=== PATIENT | female | born 1995 | race Caucasian/White ===

== ENCOUNTER 2018-02-11 00:09 | Day surgery (SDC) | payer OTHER ==
[2018-02-11 00:58] VITALS: BMI 39.4
[2018-02-11] MEDS ORDERED: Promethazine HCl 25 MG/ML VIAL IM SCH (02:00)
[2018-02-11] MEDS ORDERED: Morphine 10 MG/ML VIAL IM SCH (02:00)
[2018-02-11 03:07] LABS: Creatinine, Urine 156.15 mg/dL (47-110)
--- NOTE | 2018-02-11 03:33 | PRG ---
OB ER ENCOUNTER DATE OF SERVICE: 02/11/2018 PRIMARY OB: Lakeshia Avalos M.D. CHIEF COMPLAINT: Abdominal pains. HISTORY OF PRESENT ILLNESS: The patient is a 22-year-old G1, P0 female with an intrauterine at 40 weeks and 3 days who is presenting to Labor and Delivery with the uterine contractions that began about 8:00 this morning. She reports she is feeling better every 2-3 minutes. She denies any vaginal bleeding or leakage of fluid. She was last checked about almost a week ago and was noted to be 1 cm dilated. She has been checked again today by nursing staff and was 1 cm dilated. The patient denies any recent illness, fever, fall , headache, chest pain, shortness of breath. She has had some nausea, no vomiting, has had some diarrhea, no constipation. Denies any rashes. Denies any musculoskeletal pains. Denies vaginal bleeding, leakage of fluid, or urinary problems. PAST MEDICAL HISTORY: Negative. PAST SURGICAL HISTORY: Negative. OBSTETRIC HISTORY: This is her first . ALLERGIES: No known drug allergies. SOCIAL HISTORY: Denies drug, alcohol or tobacco use. MEDICATIONS: vitamins. OB LABS: Blood type is O negative, antibody screen is negative. She is rubella immune. HIV is nonreactive. RPR is nonreactive. One hour glucola was 145. Three-hour test is unavailable at time of dictation. HIV nonreactive, hepatitis B surface antigen nonreactive. REVIEW OF SYSTEMS: Per HPI. PHYSICAL EXAMINATION: VITAL SIGNS: Blood pressure 134/83, heart rate of 83, respiratory rate of 18, satting 98% on room air, and temperature 98.6. Most recent blood pressure 159/ 73, heart rate of 81, respiratory rate of 20. GENERAL: She appears to have some distress with contractions. She is alert and oriented, cooperative and pleasant to interact with. HEENT: Head is normocephalic, atraumatic. LUNGS: Clear to auscultation bilaterally. HEART: Regular rate and rhythm. ABDOMEN: Gravid and soft in between contractions. EXTREMITIES: Nontender, nonedematous. CERVICAL EXAM: 1, 60, and -2 station. heart tracing performed for abdominal pain in . Baseline is noted to be in the 130s with moderate long-term variability, positive accelerations, and no deceleration. Tocometer is showing some irregular contractions about every 2-4 minutes. ASSESSMENT AND PLAN: The patient is a 22-year-old with an intrauterine at 40 weeks and 3 days who is likely in latent labor at this time. She is showing some mild range blood pressure, possibly due to pain related. We will monitor her longer than had originally planned and given her 6 mg of morphine IM and 25 mg of Phenergan IM. Once her pain is under control, we will continue to monitor blood pressures and see if they spike into the mild range again, if so patient will remain until morning for likely induction of labor. Addendum: pt with pain control had normal blood pressures. Was called by nursing staff several hours after initial eval. sve unchanged, pt sleeping between ctx. blood pressures wnl. pt discharged home. She has an appt with Dr Avalos at 10am this morning [facility]
== END 2018-02-11 05:05 | disposition home or self-care (01) ==
LOC: L&D/OP 00:09
PROVIDERS: ATTEND Obstetrics & Gynecology
DX: O47.1 False labor at or after 37 completed weeks of gestation (principal); Z3A.40 40 weeks gestation of pregnancy; Z79.899 Other long term (current) drug therapy; Z91.040 Latex allergy status
CPT/HCPCS: 82570; 84156; 96372; 99284; J2270; J2550

== ENCOUNTER 2018-02-11 19:19 | Inpatient (IN) | payer OTHER ==
[~2018-02-11 19:19] MED LIST: Lidocaine 2% MPF 10 ML AMP (For Epidural Use) ONE
[2018-02-11] MEDS ORDERED: Lactated Ringer's 1,000 ML IV SCH (20:30)
[2018-02-11] MEDS ORDERED: HYDROcodone/Acetaminophen 5/325 mg Tablet PO PRN ×2 (20:47)
[2018-02-11] MEDS ORDERED: NS / Oxytocin 40 units/1000ml 1,000 ML IV PRN (20:47)
[2018-02-11] MEDS ORDERED: Ibuprofen 800 MG TAB PO PRN (20:47)
[2018-02-11] MEDS ORDERED: Lidocaine 1% (PF) 30 ML VIAL SC PRN (20:47)
[2018-02-11] MEDS ORDERED: Promethazine HCl 25 MG/ML VIAL IM PRN (20:47)
--- NOTE | 2018-02-11 20:52 | PDOC.LDHP ---
Labor and Delivery H&P HPI: PLEASE SEE HANDWRITTEN PROGRESS NOTES FOR H&P Location: L&D Patient of Dr allen CC: contrcations at 40 weeks 3 days Patient here for contractions, was 1 cm yesterday and then 3cm today with alejandro in office. Now, still with contractions but 3cm. Good FM. HX of DX of Factor V Leiden Heterozygous. No personal HX or family HX DVT/PE. Unsure how the thrombophilia work up found that DX per [employer] (No clotting episodes). She was on 81mg ASA this , but stopped 1 weeks ago. No other issues. Review of Systems: complete ROS performed and negative as per HPI Current gestational age (weeks): 40 (3) Due date: 02/08/18 Grav: 1 Para: 0 Previous surgical history: none Allergies/Adverse Reactions: Allergies Allergy/AdvReac Type Severity Reaction Status Date / Time latex Allergy Verified 02/11/18 00:50 Social history: none - Physical Exam Vital signs reviewed and normal: yes General: NAD Heart: RRR Lungs: CTAB Abdomen: gravid (EFW 7#) FHT: category 1 [place] contractions every: every 5 minutes or so - Vaginal Exam cm dilated: 3 (BOWI) Effacement: 90% Station: -2 - Assessment L&D Assessment: term patient in labor (Latent phase, Factor V Heterozygous) - Plan Plan: admit to L&D, labor augmentation if indicated (WE will begin pitocin for augmenation if needed at 0400 after interval to see if spontaneous progress occurs.), informed consent obtained, anesthesia consult for pain management, other (ACOG states low risk thrombophilia does not need anticogulation without personal or family HX. We will apply SCDs to be conservative. I have reviewed all of this information with the patient and her partner at bedside. Dr Allen aware.)
[2018-02-11 20:57] LABS: Hemoglobin 12.1 g/dL (12.0-16.0); Mean Corpuscular HGB CONC 33.1 g/dL (32.0-36.0); Mean Corpuscular Hemoglobin 29.6 pg (27.0-31.0); Mean Corpuscular Volume 89.4 fl (81.0-99.0); Mean Platelet Volume 7.8 fL (7.4-10.4); Platelet Count 231 thou/uL (130-400); RBC Distribution Width 12.1 % (11.5-14.5); Red Blood Cell (RBC) Count 4.09 mill/uL (4.20-5.40); White Blood Cell (WBC) Count 16.6 thou/uL (4.8-10.8)
[2018-02-11 21:15] VITALS: BMI 39.4
[2018-02-11 21:35] LABS: Syphilis Antibody Nonreactive (Nonreactive); Syphilis Antibody Index 0.05 S/CO (<1.00 Non-Reactive)
[2018-02-12 01:09] LABS: HBSAg Index 0.17 S/CO (0-0.99); HIV (1/2) Antibody/Antigen Non-Reactive (NonReactive); HIV 1/2 INDEX 0.15 S/CO (<1.00); Hep B Surf Ag Non-Reactive S/CO (NonReactive)
[2018-02-12] MEDS: Lactated Ringer's 1,000 ML IV SCH ×2 (03:55→04:46)
[2018-02-12] MEDS ORDERED: NS w/ Oxytocin 10 units 500 ML IV SCH (04:00)
[2018-02-12] MEDS ORDERED: DISCONTINUE ALL PREVIOUS NARCOTICS FS SCH (04:30)
[2018-02-12] MEDS: Bupivacaine 0.5% 20 ML, fentaNYL Citrate/PF 400 MCG in Sodium Chloride 0.9% 72 ML EPIDURAL SCH ×2 (04:50→10:24)
[2018-02-12] MEDS ORDERED: Lactated Ringer's 500 ML IV PRN (06:22)
[2018-02-12] MEDS ORDERED: ePHEDrine/0.9% NaCl/PF SYRINGE 50 mg/10 ml SLOW IVP PRN (06:22)
[2018-02-12] MEDS ORDERED: Acetaminophen 325 MG TAB PO PRN (06:22)
[2018-02-12] MEDS ORDERED: Naloxone HCl 0.4 mg/ml Vial IVP PRN ×2 (06:22)
[2018-02-12] MEDS ORDERED: Ondansetron HCl/PF 4 MG/2 ML Vial IVP PRN (06:22)
[2018-02-12] MEDS ORDERED: Promethazine HCl 25 MG/ML VIAL IM PRN (06:22)
[2018-02-12] MEDS ORDERED: Eucerin (Mineral Oil/Petrolatum,White) 30 gm Jar TOP PRN (06:22)
[2018-02-12] MEDS ORDERED: diphenhydrAMINE 50 MG/ML VIAL IVP PRN (06:22)
[2018-02-12] MEDS ORDERED: Communication Order-Pharmacy FS SCH (06:30)
[2018-02-12] MEDS ORDERED: Fentanyl 4mcg/Marcaine 0.1% Cassette 100 ML EPIDURAL SCH (06:30)
[2018-02-12] MEDS ORDERED: Lanolin Ointment 7 GM TUBE TOP PRN (11:25)
[2018-02-12] MEDS ORDERED: Benzocaine/Menthol 20-0.5% 60 ML CAN TOP PRN (11:25)
[2018-02-12] MEDS ORDERED: Milk Of Magnesia 30 ML UDCUP PO PRN (11:25)
[2018-02-12] MEDS ORDERED: diphenhydrAMINE 25 MG CAP PO PRN (11:25)
[2018-02-12] MEDS ORDERED: Preparation H Ointment 28 GM TUBE PR PRN (11:25)
[2018-02-12] MEDS ORDERED: traMADol HCl 50 MG TAB PO PRN (11:25)
[2018-02-12] MEDS ORDERED: Bisacodyl 10 MG SUPP PR PRN (11:25)
--- NOTE | 2018-02-12 11:27 | PDOC.OPDEL ---
OB Operative/Delivery Note Delivery Dr/Surgeon: Bailey Pre-Delivery Diagnosis: active labor Procedure/Post Delivery Dx: spontaneous vaginal delivery Weeks gestation: 40 Anesthesia: epidural - Findings A Sex: male - 1 min: 8 - 5 min: 9 - Additional Findings/Plan Placenta delivered: spontaneous Repaired Obstetrical Laceration: 2nd degree Estimated blood loss: 200ml Post delivery plan: routine recovery
[2018-02-12] MEDS ORDERED: NS / Oxytocin 40 units/1000ml 1,000 ML IV SCH (11:30)
[2018-02-12] MEDS: Ibuprofen 800 MG TAB PO SCH ×2 (14:37→21:17)
[2018-02-12] MEDS: Ferrous Sulfate 325 MG TAB PO SCH (17:23)
[2018-02-12] MEDS: Docusate Calcium (SURFAK) 240 MG CAP PO SCH (21:18)
[2018-02-13] MEDS: traMADol HCl 50 MG TAB PO PRN ×2 (00:35→20:56)
[2018-02-13] MEDS: Ibuprofen 800 MG TAB PO SCH ×2 (05:55→14:01)
[2018-02-13] MEDS ORDERED: Adacel (T-DAP) 0.5 ML VIAL IM ONE (09:00)
[2018-02-13] MEDS: Prenatal Vitamin 1 TAB PO SCH (09:31)
[2018-02-13] MEDS: Docusate Calcium (SURFAK) 240 MG CAP PO SCH ×2 (09:31→20:56)
[2018-02-13] MEDS: Ferrous Sulfate 325 MG TAB PO SCH ×2 (09:31→17:50)
--- NOTE | 2018-02-13 10:38 | PDOC.PP ---
Post Progress Note Post Day #: 1 PO intake tolerated: yes Flatus: yes Ambulation: yes Vital Signs (12 hours) Temp Pulse Resp BP BP 02/13/18 08:00 98.6 F 71 18 104/59 L 02/13/18 04:00 98.7 F 85 18 127/77 02/13/18 00:35 99.0 F 83 18 122/57 L Weight Weight 223 lb - Physical Examination General: NAD Cardiovascular: no m/r/g, RRR Respiratory: clear to auscultation bilaterally, non-labored breathing Abdominal: + bowel sounds, lochia, no distention, appropriately TTP Result Diagrams: 02/11/18 20:30 Additional Labs: Post Labs Blood Type O NEGATIVE 02/11/18 20:30 Hep Bs Antigen Non-Reactive S/CO (NonReactive) 02/11/18 20:30 - Assessment/Plan post day 1 doing well d/c in am
[2018-02-14] MEDS: Ibuprofen 800 MG TAB PO SCH (00:20)
[2018-02-14] MEDS: traMADol HCl 50 MG TAB PO PRN (03:38)
--- NOTE | 2018-02-14 06:00 | PDOC.EVN ---
Event Note - Event Note Event Note: day 2 DISCHARGE NOTE Admit: 02/11/18 Discharge: 02/14/18 Procedure: Patient seen on day of discharge. No acute concerns. S/P . See day 2 Progress Note.
--- NOTE | 2018-02-14 06:02 | PDOC.PP ---
Post Progress Note Post Day #: 2 Subjective: Doing well PO intake tolerated: yes Flatus: yes Ambulation: yes Vital Signs (12 hours) Temp Pulse Resp BP Pulse Ox 02/13/18 20:30 98.2 F 89 20 120/69 98 02/13/18 18:13 96.5 F L Weight Weight 223 lb - Physical Examination General: NAD Cardiovascular: no m/r/g Respiratory: clear to auscultation bilaterally Abdominal: lochia, no distention, appropriately TTP Extremities: negative homans (B) Neurological: no gross focal deficits Psychiatric: A&Ox3, normal affect Result Diagrams: 02/11/18 20:30 Additional Labs: Post Labs Blood Type O NEGATIVE 02/11/18 20:30 Hep Bs Antigen Non-Reactive S/CO (NonReactive) 02/11/18 20:30 (1) Factor V Leiden carrier Code(s): D68.51 - ACTIVATED PROTEIN C RESISTANCE Status: Acute (2) Vaginal delivery Code(s): O80 - ENCOUNTER FOR FULL-TERM UNCOMPLICATED DELIVERY Status: Acute - Assessment/Plan Day 2. Stable. Mobile and no evidence DVT. factor V heterozygous state again reviewed with her.
[2018-02-14] MEDS ORDERED: Ibuprofen 800 MG TAB PO SCH (08:00)
[2018-02-14 08:56] VITALS: BP 119/71; TEMP 98.3
[2018-02-14] MEDS: Prenatal Vitamin 1 TAB PO SCH (09:10)
[2018-02-14] MEDS: Docusate Calcium (SURFAK) 240 MG CAP PO SCH (09:10)
[2018-02-14] MEDS: Ferrous Sulfate 325 MG TAB PO SCH (09:13)
== END 2018-02-14 13:05 | disposition home or self-care (01) | DRG 775 ==
LOC: L&D/OP 19:19 → L&D 21:14 → 3SW 02-12 13:56
PROVIDERS: ADMIT Obstetrics & Gynecology; ATTEND Obstetrics & Gynecology
PROC: 10E0XZZ Delivery of Products of Conception, External Approach (ICD-10-PCS; principal; 2018-02-12)
PROC: 0KQM0ZZ Repair Perineum Muscle, Open Approach (ICD-10-PCS; 2018-02-12)
PROC: 10907ZC Drainage of Amniotic Fluid, Therapeutic from Products of Conception, Via Natural or Artificial Opening (ICD-10-PCS; 2018-02-12)
DX: O99.12 Other diseases of the blood and blood-forming organs and certain disorders involving the immune mechanism complicating childbirth (principal); D68.51 Activated protein C resistance; O70.1 Second degree perineal laceration during delivery; Z3A.40 40 weeks gestation of pregnancy; Z37.0 Single live birth
CPT/HCPCS: 36415; 51702; 82570; 84156; 85027; 85461; 86780; 86850; 86900; 86901; 87340; 87389; 90384; 96372; J0595; J2001; J2270; J2550; J3010; J3490; J7050

== ENCOUNTER 2018-08-08 16:16 | Emergency (ER) | payer OTHER ==
[2018-08-08 16:57] LABS: Bilirubin Negative (Negative); Blood, Urine Negative (Negative); Clarity CLEAR (Clear); Glucose, Urine (Dipstick) Negative (Negative); Leukocyte Negative (Negative); Nitrite Negative (Negative); Protein, Urine (Dipstick) Negative (Neg-Trace); Specific Gravity, Urine 1.021 (1.002-1.036); Urobilinogen 0.2 mg/dL (0.2-1.0)
[2018-08-08 16:58] LABS: #Basophils 0.1 thou/uL (0.0-0.2); #Eosinphils 0.1 thou/uL (0.0-0.7); #Lymphocytes 1.4 thou/uL (1.20-3.40); #Monocytes 0.6 thou/uL (0.11-0.59); #Neutrophils 11.2 thou/uL (1.40-6.50); %Basophils 0.4 % (0.0-1.0); %Eosinophils 0.6 % (0.0-10.0); %Lymphocytes 10.3 % (21.0-51.0); %Monocytes 4.5 % (0.0-10.0); %Neutrophils 84.2 % (42.0-75.0); Hemoglobin 14.5 g/dL (12.0-16.0); Mean Corpuscular HGB CONC 34.4 g/dL (32.0-36.0); Mean Corpuscular Hemoglobin 30.5 pg (27.0-31.0); Mean Corpuscular Volume 88.6 fL (78.0-98.0); Mean Platelet Volume 7.1 fL (7.4-10.4); Platelet Count 292 thou/uL (130-400); RBC Distribution Width 12.5 % (11.5-14.5); Red Blood Cell (RBC) Count 4.76 mill/uL (4.20-5.40); White Blood Cell (WBC) Count 13.3 thou/uL (4.8-10.8)
[2018-08-08 17:22] LABS: ALT (SGPT) 15 U/L (8-55); AST (SGOT) 13 U/L (5-34); Albumin 3.9 g/dL (3.5-5.0); Alkaline Phosphatase 71 U/L (40-150); Anion Gap 14 mmol/L (10-20); BUN (Urea Nitrogen) 4 mg/dL (7.0-18.7); Bilirubin, Total 0.2 mg/dL (0.2-1.2); Calc. Creatinine Clearance 0 mL/min (70-130); Calcium 9.4 mg/dL (7.8-10.44); Carbon Dioxide 22 mmol/L (22-29); Chloride 104 mmol/L (98-107); Estimated GFR-MDRD Greater than 90; Globulin 3.4 g/dL (2.4-3.5); Glucose 112 mg/dL (70-105); Lipase 18 U/L (8-78); Potassium 3.6 mmol/L (3.5-5.1); Protein, Total 7.3 g/dL (6.0-8.3); Sodium 136 mmol/L (136-145)
[2018-08-08] MEDS ORDERED: Lidocaine Viscous Sol 2% 15 ml UD Cup ONE (17:33)
[2018-08-08] MEDS ORDERED: Mag-Al 1200 mg/1200 mg/30 ML UDCUP ONE (17:33)
== END 2018-08-08 18:07 | disposition home or self-care (01) ==
LOC: ERS 16:16
DX: O99.89 Other specified diseases and conditions complicating pregnancy, childbirth and the puerperium (principal); R10.9 Unspecified abdominal pain; Z3A.15 15 weeks gestation of pregnancy
CPT/HCPCS: 36415; 80053; 81003; 83690; 85025; 96360

== ENCOUNTER 2019-01-21 21:23 | Inpatient (IN) | payer OTHER ==
[~2019-01-21 21:23] MED LIST changes: +Bupivacaine 0.25% HCL 30 ML VIAL ONE; -Lidocaine 2% MPF 10 ML AMP (For Epidural Use) ONE
[2019-01-21] MEDS ORDERED: Fentanyl 4 mcg/Bup 0.1% Cadd 100 ML ONE (21:50)
[2019-01-21 21:59] VITALS: BMI 40.7
[2019-01-21] MEDS ORDERED: Diphenoxylate HCl/Atropine Tablet PO PRN ×2 (22:08)
[2019-01-21] MEDS ORDERED: Methylergonovine 0.2 MG/ML VIAL IM PRN (22:08)
[2019-01-21] MEDS ORDERED: Butorphanol Tartrate 1 MG/ML VIAL SLOW IVP PRN (22:08)
[2019-01-21] MEDS ORDERED: Promethazine HCl 25 MG/ML VIAL IM PRN ×2 (22:08→23:19)
[2019-01-21] MEDS ORDERED: Misoprostol 200 MCG TAB PR PRN (22:08)
[2019-01-21] MEDS ORDERED: Acetaminophen 500 MG TAB PO PRN (22:08)
[2019-01-21] MEDS ORDERED: Carboprost 250 MCG/ML AMP IM PRN (22:08)
[2019-01-21] MEDS ORDERED: Lidocaine 1% (PF) 30 ML VIAL SC PRN (22:08)
[2019-01-21] MEDS ORDERED: HYDROcodone/Acetaminophen 5/325 mg Tablet PO PRN ×2 (22:08)
[2019-01-21] MEDS ORDERED: Ibuprofen 800 MG TAB PO PRN (22:08)
[2019-01-21] MEDS ORDERED: NS / Oxytocin 40 units/1000ml 1,000 ML IV PRN (22:08)
[2019-01-21] MEDS ORDERED: Ondansetron PF 4 MG/2 ML Vial IVP PRN ×2 (22:08→23:19)
[2019-01-21 22:26] LABS: Mean Corpuscular HGB CONC 33.9 g/dL (32.0-36.0); Mean Corpuscular Hemoglobin 28.6 pg (27.0-31.0); Mean Corpuscular Volume 84.3 fL (78.0-98.0); Mean Platelet Volume 8.9 fL (7.4-10.4); Platelet Count 253 thou/uL (130-400); RBC Distribution Width 13.2 % (11.5-14.5); Red Blood Cell (RBC) Count 4.53 mill/uL (4.20-5.40); White Blood Cell (WBC) Count 18.1 thou/uL (4.8-10.8)
--- NOTE | 2019-01-21 22:33 | PDOC.LDHP ---
Labor and Delivery H&P Chief complaint: contractions HPI: 23 y/o at 39w3d, patient of Dr. Avalos, presents with ctx q 2-3 mins. Denies VB, LOF, or decreased FM. ROS neg for HEENT, cv, pulm, gi, gu, neuro, psych, skin, musculoskeletal or constitutional symptoms other than mentioned above. OB History Details: 1 prior 11 months ago Current complications: none Past Medical History: Factor V Leiden heterozygote Current medications: pre-katrina vitamins, other (ASA 81 mg) Previous surgical history: none Allergies/Adverse Reactions: Allergies Allergy/AdvReac Type Severity Reaction Status Date / Time latex Allergy Unverified 01/21/19 22:00 Social history: none - Physical Exam Vital signs reviewed and normal: yes General: NAD, resting Lungs: nonlabored breathing Abdomen: gravid Extremeties: no edema FHT: category 1 (130s, mod variability, + accels, no decels) [place] contractions every: 2-3 mins - Vaginal Exam cm dilated: 8 Effacement: 100% Station: 0 - OB Labs Blood type: O RH: negative Antibody Screen: negative HIV: negative RPR: negative HEPSAg: negative 1 hour GCT: negative GBS: negative Rubella: immune - Assessment L&D Assessment: term patient in labor - Plan Plan: admit to L&D, informed consent obtained, anesthesia consult for pain management -: Dr. Avalos unavailable for delivery and handing over care to [facility].
[2019-01-21 22:59] LABS: Syphilis Antibody Nonreactive (Nonreactive); Syphilis Antibody Index 0.05 S/CO (<1.00 Non-Reactive)
[2019-01-21 23:05] LABS: Hep B Surf Ag Non-Reactive S/CO (NonReactive)
[2019-01-21] MEDS ORDERED: ePHEDrine/0.9% NaCl/PF SYRINGE 50 mg/10 ml SLOW IVP PRN (23:19)
[2019-01-21] MEDS ORDERED: Lactated Ringer's 500 ML IV PRN (23:19)
[2019-01-21] MEDS ORDERED: Acetaminophen 325 MG TAB PO PRN (23:19)
[2019-01-21] MEDS ORDERED: Naloxone HCl 0.4 mg/ml Vial IVP PRN ×2 (23:19)
[2019-01-21] MEDS ORDERED: Eucerin (Mineral Oil/Petrolatum,White) 30 gm Jar TOP PRN (23:19)
[2019-01-21] MEDS ORDERED: diphenhydrAMINE 50 MG/ML VIAL IVP PRN (23:19)
--- NOTE | 2019-01-21 23:22 | PDOC.LDPN ---
Labor & Delivery Progress Note - Subjective Subjective: comfortable - Objective Vital signs reviewed and normal: yes General: NAD, resting Uterine fundus: non tender Dilation: 8 Effacement: 100% Station: 0 FHT: category 1 [place] contractions every: 2 mins AROM: bloody fluid Plan: continue plan of care
[2019-01-21] MEDS ORDERED: Fentanyl 4 mcg/Bupivacaine 0.1% Cassette 100 ML EPIDURAL SCH (23:30)
[2019-01-21] MEDS ORDERED: Communication Order-Pharmacy FS SCH (23:30)
[2019-01-21] MEDS: Lactated Ringer's 1,000 ML IV SCH ×2 (23:34→23:36)
[2019-01-22] MEDS: NS / Oxytocin 40 units/1000ml 1,000 ML IV SCH ×2 (01:30→03:31)
[2019-01-22] MEDS ORDERED: Ondansetron PF 4 MG/2 ML Vial IVP PRN (01:31)
[2019-01-22] MEDS ORDERED: Milk Of Magnesia 30 ML UDCUP PO PRN (01:31)
[2019-01-22] MEDS ORDERED: Lanolin Ointment 7 GM TUBE TOP PRN (01:31)
[2019-01-22] MEDS ORDERED: Bisacodyl 10 MG SUPP PR PRN (01:31)
[2019-01-22] MEDS ORDERED: Zolpidem Tartrate 5 MG TAB PO PRN (01:31)
[2019-01-22] MEDS ORDERED: Benzocaine-Menthol 82.5 ML CAN TOP PRN (01:31)
[2019-01-22] MEDS ORDERED: Misoprostol 200 MCG TAB VAG PRN (01:31)
[2019-01-22] MEDS ORDERED: diphenhydrAMINE 25 MG CAP PO PRN (01:31)
[2019-01-22] MEDS ORDERED: Preparation H Ointment 28 GM TUBE PR PRN (01:31)
[2019-01-22] MEDS ORDERED: Promethazine HCl 25 MG/ML VIAL IM PRN (01:31)
[2019-01-22] MEDS ORDERED: Methylergonovine 0.2 MG/ML VIAL IM PRN (01:31)
--- NOTE | 2019-01-22 01:34 | PDOC.OPDEL ---
OB Operative/Delivery Note Delivery Dr/Surgeon: Rachel Castro MD Pre-Delivery Diagnosis: active labor Procedure/Post Delivery Dx: spontaneous vaginal delivery Weeks gestation: 39 Anesthesia: epidural - Findings A Sex: male ("Jesus") Weight: 7 lb 11.141 oz - 1 min: 9 - 5 min: 9 - Additional Findings/Plan Placenta delivered: spontaneous Repaired Obstetrical Laceration: none Estimated blood loss: 126ml Post delivery plan: routine recovery
[2019-01-22] MEDS: Ibuprofen 800 MG TAB PO SCH ×3 (05:41→21:47)
[2019-01-22] MEDS: Ferrous Sulfate 325 MG TAB PO SCH ×2 (07:19→18:15)
[2019-01-22] MEDS ORDERED: Varicella virus, LIVE 0.5 ML VIAL SC ONE (09:00)
[2019-01-22] MEDS ORDERED: Measles/Mumps/Rubella 10 MCG/0.5 ML VIAL SC ONE (09:00)
[2019-01-22] MEDS ORDERED: Adacel (T-DAP) 0.5 ML SYRINGE IM ONE (09:00)
[2019-01-22] MEDS: Docusate Calcium (SURFAK) 240 MG CAP PO SCH ×2 (09:31→21:47)
[2019-01-22] MEDS: Prenatal Vitamin 1 TAB PO SCH (09:31)
[2019-01-23 00:51] VITALS: TEMP 98.3
[2019-01-23] MEDS: Ibuprofen 800 MG TAB PO SCH (05:25)
--- NOTE | 2019-01-23 06:16 | PDOC.PP ---
Post Progress Note Post Day #: 1 Subjective: Doing well, desires to stay until PPD 2 (tomorrow) due to "really tired" PO intake tolerated: yes Flatus: yes Ambulation: yes Vital Signs (12 hours) Temp Pulse Resp BP Pulse Ox 01/23/19 00:26 98.3 F 87 18 107/58 L 01/22/19 21:00 97.8 F 97 18 112/63 96 Weight Weight 230 lb Vitals reviewed for last 24 hours: wnl - Physical Examination General: NAD Cardiovascular: no m/r/g Respiratory: clear to auscultation bilaterally, non-labored breathing Abdominal: + bowel sounds, lochia, no distention, appropriately TTP Extremities: negative homans (B) Neurological: no gross focal deficits Psychiatric: A&Ox3, normal affect Result Diagrams: 01/21/19 22:13 Additional Labs: Post Labs Blood Type O NEGATIVE 01/21/19 22:13 Hep Bs Antigen Non-Reactive S/CO (NonReactive) 01/21/19 22:13 (1) Vaginal delivery Code(s): O80 - ENCOUNTER FOR FULL-TERM UNCOMPLICATED DELIVERY Status: Acute - Assessment/Plan Assessment and plan: PPD1 desires inpatient rest until PPD2. Known Factor V leiden carrier...per ACOG: VTE prevention may include survellance OR low dose lovenox. As she was not surgical, ok for survellance. BMI noted, but ambulatory. No past HX DVT...this was found on lab testing in the past for unrelated back isue. I discussed the condition with her and encouraged ambulation. Per patient, no plan for PP lovenox was given pre-delivery by primary MD. Observe until tomorrow.
[2019-01-23 08:34] VITALS: BP 101/55
[2019-01-23] MEDS: Ferrous Sulfate 325 MG TAB PO SCH (10:06)
[2019-01-23] MEDS: Prenatal Vitamin 1 TAB PO SCH (10:07)
[2019-01-23] MEDS: Docusate Calcium (SURFAK) 240 MG CAP PO SCH (10:07)
--- NOTE | 2019-01-23 11:15 | PDOC.EVN ---
Event Note - Event Note Event Note: Call form Floor, pt. wants to go home. Pt. has no c/o. Has appt. with Dr. Avalos set for 6 week. Precautions reviewed. Will DC home.
== END 2019-01-23 13:15 | disposition home or self-care (01) | DRG 806 ==
LOC: L&D/OP 21:23 → L&D 22:07 → 3SW 01-22 03:41
PROVIDERS: ADMIT Obstetrics & Gynecology; ATTEND Obstetrics & Gynecology
PROC: 10E0XZZ Delivery of Products of Conception, External Approach (ICD-10-PCS; principal; 2019-01-22)
PROC: 30233S1 Transfusion of Nonautologous Globulin into Peripheral Vein, Percutaneous Approach (ICD-10-PCS; 2019-01-22)
DX: O99.12 Other diseases of the blood and blood-forming organs and certain disorders involving the immune mechanism complicating childbirth (principal); D68.51 Activated protein C resistance; Z37.0 Single live birth; Z3A.39 39 weeks gestation of pregnancy
CPT/HCPCS: 36415; 51702; 85027; 85461; 86780; 86850; 86900; 86901; 87340; 90384; 96372; S0020

== ENCOUNTER 2019-02-02 05:21 | Inpatient (IN) | payer OTHER ==
[2019-02-02] MEDS ORDERED: Ondansetron PF 4 MG/2 ML Vial ONE ×3 (05:39→13:40)
[2019-02-02 06:00] LABS: #Basophils 0.1 thou/uL (0.0-0.2); #Lymphocytes 2.5 thou/uL (1.20-3.40); #Monocytes 0.7 thou/uL (0.11-0.59); #Neutrophils 5.9 thou/uL (1.40-6.50); %Basophils 0.6 % (0.0-1.0); %Eosinophils 0.5 % (0.0-10.0); %Lymphocytes 27.5 % (21.0-51.0); %Monocytes 7.3 % (0.0-10.0); %Neutrophils 64.2 % (42.0-75.0); Hemoglobin 12.7 g/dL (12.0-16.0); Mean Corpuscular HGB CONC 31.5 g/dL (32.0-36.0); Mean Corpuscular Hemoglobin 27.8 pg (27.0-31.0); Mean Corpuscular Volume 88.2 fL (78.0-98.0); Mean Platelet Volume 6.9 fL (7.4-10.4); Platelet Count 356 thou/uL (130-400); RBC Distribution Width 13.4 % (11.5-14.5); Red Blood Cell (RBC) Count 4.56 mill/uL (4.20-5.40); White Blood Cell (WBC) Count 9.1 thou/uL (4.8-10.8)
[2019-02-02] MEDS ORDERED: Acetaminophen 500 MG TAB ONE (06:05)
[2019-02-02] MEDS ORDERED: Fentanyl 100 MCG/2 ML VIAL ONE ×3 (06:05→14:03)
[2019-02-02] MEDS ORDERED: Piperacillin/Tazobactam 3.375 GM VIAL ONE (06:18)
[2019-02-02 06:23] LABS: ALT (SGPT) 24 U/L (8-55); AST (SGOT) 24 U/L (5-34); Alkaline Phosphatase 124 U/L (40-150); Anion Gap 15 mmol/L (10-20); BUN (Urea Nitrogen) 8 mg/dL (7.0-18.7); Bilirubin, Total 0.2 mg/dL (0.2-1.2); Calc. Creatinine Clearance 0 mL/min (70-130); Calcium 9.2 mg/dL (7.8-10.44); Carbon Dioxide 21 mmol/L (22-29); Chloride 105 mmol/L (98-107); Estimated GFR-MDRD 79; Globulin 3.4 g/dL (2.4-3.5); Glucose 105 mg/dL (70-105); Potassium 3.3 mmol/L (3.5-5.1); Protein, Total 7.4 g/dL (6.0-8.3); Sodium 138 mmol/L (136-145)
[2019-02-02] MEDS ORDERED: GENTAMICIN SULFATE IVPB SCH (06:30)
[2019-02-02] MEDS ORDERED: SODIUM CHLORIDE 0.9% IVPB SCH (06:30)
[2019-02-02] MEDS ORDERED: Morphine 4 MG/ML VIAL ONE (07:02)
[2019-02-02 07:16] LABS: Bilirubin Small (Negative); Blood, Urine Negative (Negative); Clarity CLOUDY (Clear); Glucose, Urine (Dipstick) Negative (Negative); Leukocyte Negative (Negative); Nitrite Negative (Negative); Protein, Urine (Dipstick) Trace mg/dL (Neg-Trace); pH, Urine 6.5 (5.0-9.0)
--- NOTE | 2019-02-02 08:46 | PDOC.FPRHP ---
- History of Present Illness Chief Complaint: Flank Pain History of Present Illness: Ms Tsai is a 23yo female 12 days presenting with right flank pain of 1 day duration. She had been having foul vaginal discharge, vomiting and fever 102 for past two days. 12 days ago had with no antepartum, intrapartum or complications. No history of renal stones. Denies hematuria, pyruia. Does not believe she passed a stone at this point. Dec po intake, but able to urinate this AM after onset of flank pain. In the ED, pt was febrile, tachycardic 130's, Initial SBP 100 responsive to 2L NS. Also received 4mg Zofran x2 for nausea.patient met sepsis criteria and spiral CT showed two R hydrouretal nephrosis with 2mm non obstructing and 4mm obstructing renal stone. Pt given zosyn, gentamicin and fluids. Dr. Thompson consulted. OBGYN also consulted due to concern for endometritis since PE yielded presence of purulent discharge. PCP: Dr Gonzalez - Allergies/Adverse Reactions Allergies Allergy/AdvReac Type Severity Reaction Status Date / Time adhesive Allergy Mild Verified 01/22/19 12:07 - Home Medications Medication Instructions Recorded Confirmed Type Vitamin 1 tablet PO DAILY 02/11/18 01/21/19 History Acetaminophen [Tylenol Regular 650 mg PO Q4H PRN tab 01/23/19 Rx Strength] Ferrous Sulfate [Feosol] 325 mg PO BID-WM tab 01/23/19 Rx Ibuprofen [Motrin] 800 mg PO Q8HR tab 01/23/19 Rx Vitamin 1 tab PO DAILY tab 01/23/19 Rx - History PMHx: Factor 5 Leiden def PSHx: None FHx: non/contributory Social: Denies alcohol, tobacco and drug use. - Review of Systems General: reports: fever/chills, weight/appetite/sleep changes Eyes: denies: vision changes ENT: denies: nasal congestion, rhinorrhea Respiratory: denies: cough, congestion, shortness of breath Cardiovascular: denies: chest pain, palpitation, edema Gastrointestinal: reports: nausea, vomiting. denies: diarrhea, constipation, abdominal pain, GI bleeding Genitourinary: denies: dysuria, discharge Skin: denies: rashes, lesions Musculoskeletal: denies: pain, tenderness, stiffness Neurological: reports: weakness. denies: numbness, syncope, seizure - Vital signs BP: 104/73 HR: 130 RR: 24 Tmax: 102.7 Pox: 97% on RA Wt: 98kg - Physical Exam Constitutional: awake, alert and oriented -Constitutional: mild distress from flank pain HEENT: normocephalic and atraumatic, PERRLA, EOMI, conjunctiva clear Neck: supple, FROM, trachea midline Chest: no-tender to palpation Heart: normal S1/S2, no murmurs/rubs/gallops -Heart: tachycardic Lungs: CTAB, no respiratory distress, good air movement, no wheezing, no retractions Abdomen: soft, non-tender Musculoskeletal: normal structure, normal tone -Musculoskeletal: R flank pain with percussion Neurological: no focal deficit, CN II-XII intact Skin: no rash/lesions, good turgor -Skin: cap refill > 2 seconds Heme/Lymphatic: no unusual bruising or bleeding, no purpura Psychiatric: normal mood and affect, good judgment and insight FMR H&P: Results - Labs Result Diagrams: 02/02/19 05:32 02/02/19 05:32 Lab results: WBC 9.1 thou/uL (4.8-10.8) 02/02/19 05:32 Hgb 12.7 g/dL (12.0-16.0) 02/02/19 05:32 Hct 40.3 % (36.0-47.0) 02/02/19 05:32 MCV 88.2 fL (78.0-98.0) 02/02/19 05:32 Plt Count 356 thou/uL (130-400) 02/02/19 05:32 Neutrophils % 64.2 % (42.0-75.0) 02/02/19 05:32 Sodium 138 mmol/L (136-145) 02/02/19 05:32 Potassium 3.3 mmol/L (3.5-5.1) L 02/02/19 05:32 Chloride 105 mmol/L (98-107) 02/02/19 05:32 Carbon Dioxide 21 mmol/L (22-29) L 02/02/19 05:32 BUN 8 mg/dL (7.0-18.7) 02/02/19 05:32 Creatinine 0.88 mg/dL (0.6-1.1) 02/02/19 05:32 Glucose 105 mg/dL (70-105) 02/02/19 05:32 Lactic Acid 0.9 mmol/L (0.5-2.2) 02/02/19 05:32 Calcium 9.2 mg/dL (7.8-10.44) 02/02/19 05:32 Total Bilirubin 0.2 mg/dL (0.2-1.2) 02/02/19 05:32 AST 24 U/L (5-34) 02/02/19 05:32 ALT 24 U/L (8-55) 02/02/19 05:32 Alkaline Phosphatase 124 U/L (40-150) 02/02/19 05:32 Serum Total Protein 7.4 g/dL (6.0-8.3) 02/02/19 05:32 Albumin 4.0 g/dL (3.5-5.0) 02/02/19 05:32 Urine Ketones 40 mg/dL (Negative) H 02/02/19 06:32 Urine Blood Negative (Negative) 02/02/19 06:32 Urine Nitrite Negative (Negative) 02/02/19 06:32 Ur Leukocyte Esterase Negative (Negative) 02/02/19 06:32 - Radiology Interpretation CT scan - abdomen Status: report reviewed by me (4mm obstructing renal stone with R hydroureteral nephrosis) Chest x-ray Status: report reviewed by me Additional comment: No acute cardiopulm process FMR H&P: A/P - Problem List (1) Sepsis Current Visit: Yes Status: Acute Code(s): A41.9 - SEPSIS, UNSPECIFIED ORGANISM (2) Hydronephrosis with renal and ureteral calculous obstruction Current Visit: Yes Status: Acute Code(s): N13.2 - HYDRONEPHROSIS WITH RENAL AND URETERAL CALCULOUS OBSTRUCTION (3) Gardnerella associated vaginal discharge Current Visit: Yes Status: Acute Code(s): N76.0 - ACUTE VAGINITIS; B96.89 - OTH BACTERIAL AGENTS THE CAUSE OF DISEASES CLASSD [id number] - Plan Ms Tsai is a 23yo female 12 days admitted for sepsis 2/2 obstructing nephrolithiasis Sepsis likely 2/2 nephrolithiasis vs. endometritis -Tachycardic, febrile in ED, BPs initially low normal but responded to 2L NS bolus. No WBC, normal lactic acid. -CT abd showing right renal hydronephrosis with 2mm non obstructing at right upper renal pole & obstructing 4mm stone at ureterovesicular junction, Dr. Garrison consulted, plan for ureteral stent for decompression today, NPO for now -Concern for endometritis since 12 days and purulent discharge. Pelvic US showed mildly thickened endometrial stripe, no retained products of conception. OBGYN consulted and rx gentamicin to cover -G/C pending, VP3 showed +Gardnerella, per pharmacy, inc zosyn resistance. Options are clindamycin vs. flagyl. Clindamycin safer in , will start this. -Blood and urine cx pending -Since BPs adequately responded and pt going for surgery, will not bolus more. Will start on mIVF -Obtain procal, will monitor with repeat CBC, CMP -Morphine and fentanyl for pain -Will continue zosyn and gentamicin to cover for endometritis -Neg. cervical motion tenderness on exam per ED note, cannot definitively rule out PID, but G/C pending, appropriate empiric abx to cover Bacterial vaginitis -see plan above Right renal hydronephrosis with obstructing nephrolithaisis -see plan above -pt with no history of stones MATTHEW -Cr 0.88, baseline 0.6, dec gfr -likely 2/2 obstructing renal stone vs. volume depletion -s/p 2L bolus -continue mIVF Factor 5 Leiden deficiency -MD aware, will monitor Code Status: FULL DVT ppx: lovenox PCP: Dr Gonzalez FMR H&P: Upper Level - Pertinent history 23 y/o F w/ recent vaginal delivery 12 days ago w/o complications per patient presents for evaluation of R-flank pain and fever which started yesterday. Associated w/ lower abdominal pain and foul smelling vaginal discharge and vomiting. Fever to 101 degF at home per patient. Vaginal delivery x2 in the past. No hx of CSx. Denies any need for abx during or after delivery. Pt had pelvic U/S which was normal and CT-AP showing a R-renal stone measuring 4 cm per ER report. Official radiology read is currently pending. Pt is currently breast feeding and PROCEDURE WRITER was consulted from the ER confirming adequacy of abx pt was started on (Gent and Zosyn). Urology was also consulted 2/2 concern for infected obstructing stone w/ plans to take for stent placement this AM. - Pertinent findings Vitals per policy intern note WBC 9.1 Hgb 12.7 LA 0.9 U/A Neg Nitrite, Neg Blood, Neg LE VP3 - + Gardnerella CT-AP 4 mm obstructing R-renal stone per ER report Pelvic U/S NAD CXR NAD GEN: NAD resting in bed w/ emesis basin CARD: Slightly tachycardic, no mumru GI: Soft, NTTP, BS x4. R- CVA tenderness - Plan Date/Time: 02/02/19 0842 I B. Alex Umaña MD, have evaluated this patient and agree with findings/plan as outlined by policy intern resident. Pertinent changes/additions are listed here. 23 y/o F w/: 1. Sepsis 2/2 likely infected obstructing stone vs endometritis - U/A relatively normal, however cannot r/o infected obstructing stone based on symptomatology and CT findings - Urology w/ plans to place stent for renal decompression this AM, will keep pt NPO - Cont. w/ Abx started in the ER that were cleared by PROCEDURE WRITER and Urology for appropriate coverage in this breast feeding patient - Cannot definitiely r/o post- endometritis as patient does have another likely source and is slightly out of the usual range of 10 days post-. OB/ CIRCUIT BREAKER SUPERVISOR consulted from ER. Appreciate recommendations. - Will cont. w/ IVF at matainence and allow pt to take PO s/p procedure - Monitor I/Os w/ strict I/Os - BCx, UCx, GC/Chl pending - LA WNL 2. Gardnerella Vaginitis - Discussed w/ pharmacy, Zosyn with increasing resistance rates in treatment of gardnerella. Will likely need alternative agent to cover for this. It is looking like our options are clindamycin or flagyl. Clinda appears to be a safer choice during breast feeding so will add this on as well for coverage. - Negative cervical motion tenderness per ER report. Low suspicion for PID at this point. Likely secondary finding and non-contributing to #1 Diet: NPO IVF: LR @ 125 mL/Hr CODE: Full Addendum - Attending - Attending Attestation Date/Time: 02/02/19 1010 I personally evaluated the patient and discussed the management with Dr. Lyman. I agree with the History, Examination, Assessment and Plan documented above with any addition or exceptions noted below. The patient presents 12 days post- with fever, chills, flank pain and vaginal discharge. She has 2 kidney stones with one obstructing. Pt will be taken to OR by urology. driving teacher is also consulted. Pt found to have gardnerella on vp3. Treating with zosyn, gent and clindamycin. Pain control. IV fluids.
--- NOTE | 2019-02-02 08:47 | RAD ---
CHEST 1 VIEW: INDICATION: History of low back pain and vomiting 12 days post . FINDINGS: The exam is compared to a prior dated 12/04/2013. The lungs are clear. Heart size is normal. No acute osseous abnormality is evident. IMPRESSION: No acute cardiopulmonary abnormality. POS: BH
--- NOTE | 2019-02-02 09:05 | ULT ---
TRANSABDOMINAL PELVIC ULTRASOUND: INDICATION: Right flank to lower back pain since last evening; 12 days with a history of fever. TECHNIQUE: Evans scale, color Doppler, and spectral Doppler images were obtained of the pelvis via a transabdomin al approach. FINDINGS: The uterus has a normal appearance. The endometrial stripe is mildly thickened measuring 1.6 cm. The right ovary measures 4.4 cm in its greatest dimension. The left ovary measures 3.6 cm. There is normal flow to both left and right ovary. No free fluid is identified. IMPRESSION: The endometrial stripe is mildly thickened measuring 1.6 cm with no visible vascularized retained pro ducts of conception seen. No free fluid is identified. Visualized ovaries were normal. POS: BH
--- NOTE | 2019-02-02 09:39 | CT ---
ABDOMEN AND PELVIC CT SCAN WITH IV CONTRAST: HISTORY: Abdominal pain, low back pain. COMPARISON: None. FINDINGS: The visualized lung bases are clear. Liver, gallbladder, pancreas, spleen, and adrenal glands are un remarkable. No ductal dilatation. Nonobstructing right renal calculus. Dilatation of the right upp er renal collecting system and right ureter down to the ureterovesicular junction region secondary to an obstructing 0.4 cm stone. Normal-appearing appendix. No bowel obstruction. No abscess or abnor mal fluid collection. No adenopathy. Uterus and adnexa are unremarkable. IMPRESSION: Right hydroureteral nephrosis secondary to a 0.4 cm obstructing stone at the ureterovesicular junctio n. Nonobstructing right renal calculus. Normal-appearing appendix. POS: FABIAN
--- NOTE | 2019-02-02 12:48 | CON ---
DATE OF CONSULTATION: 02/02/2019 REASON FOR CONSULT: History of fever, right UVJ stone. HISTORY OF PRESENT ILLNESS: Darleen is a 23-year-old female, G2, P2, 14 days , who presented to the emergency room due to acute onset of right lower quadrant abdominal pain with sensation of chills, presented with fever of 102, tachycardic at 130, which has improved with fluids, blood pressure 104/73. She was provided Zofran, morphine, and continues to have right lower quadrant abdominal discomfort. She denies prior history of kidney stones, UTI, or gross hematuria. PAST MEDICAL HISTORY: Factor 5 deficiency. SURGICAL HISTORY: 14 days. PSYCHIATRIC HISTORY: No prior psychiatric history. SOCIAL HISTORY: Denies alcohol or illicit drug use. Lives at home. at bedside. HOME MEDICATIONS: Include acetaminophen. PHYSICAL EXAMINATION: VITAL SIGNS: Temperature is 102.7, pain rated 10, respiration 24, pulse 130, blood pressure 104/73. GENERAL: The patient appears to be in [id number] distress. HEENT: Grossly unremarkable. HEART: Regular, tachycardic. LUNGS: Clear. ABDOMEN: Soft. There is subjective discomfort in the right lower quadrant. No rigidity. No rebound. EXTREMITIES: No cyanosis, clubbing, or edema. : No significant prolapse. PERTINENT LABORATORY AND IMAGING DATA: White count 9, hemoglobin 12, platelet 356. UA, 40 ketones, small blood. Lactic acid is normal. Creatinine 0.8 CT with contrast dated today demonstrates bilateral nephrogram phase, there is right nonobstructing 2 mm stone in the upper pole, right obstructing 4 mm UVJ stone with hydronephrosis. Left kidney is grossly unremarkable. IMPRESSION AND PLAN: Darleen is a 23-year-old female day 14, presents with fever, right lower quadrant abdominal pain. CT demonstrating right ureterovesical junction stone. She has been provided Zosyn, gentamicin in the ER. OB has been consulted for evaluation. She is n.p.o. Advised regarding cysto and stent. Urine culture has been obtained. The patient n.p.o. Job ID: [id number] [facility]
[2019-02-02] MEDS ORDERED: Scopolamine 1.5 mg/72 hour Patch ONE (14:03)
[2019-02-02] MEDS ORDERED: ISOVUE-370 76%-LOCM 1 ML ONE (14:18)
--- NOTE | 2019-02-02 14:37 | CON ---
DATE OF CONSULTATION: 02/02/2019 CONSULTING PHYSICIAN: William العراقي MD CHIEF COMPLAINT: Low back pain with elevated temperature at home over the last 24 to 48 hours. HISTORY OF PRESENT ILLNESS: Ms. Tsai is a 23-year-old white G2, now P2, who is status post vaginal delivery on 01/[address] Rachel Castro for Dr. Avalos. She had an uncomplicated vaginal delivery at that time. She presents now complaining of a 48-hour history of lower back pain as well as subjective temperature at home. I was asked to see the patient in the emergency room for consideration of endometritis. PAST MEDICAL HISTORY: None. PAST SURGICAL HISTORY: None. CURRENT MEDICATIONS: vitamins. ALLERGIES: NO KNOWN ALLERGIES. SOCIAL HISTORY: Denies tobacco, alcohol, or drug use. PHYSICAL EXAMINATION: VITAL SIGNS: Temperature in the emergency room on initial evaluation was 102 degrees. Her blood pressure now is 137/81 with a pulse of 106. GENERAL: She is mildly ill-appearing, but in no acute distress. CHEST: Clear to auscultation. CARDIOVASCULAR: Regular rate and rhythm. ABDOMEN: Soft with no guarding or rebound. There is minimal fundal tenderness. Pelvic examination done by an ER resident did disclose foul-smelling lochia. LABORATORY DATA: White count 9.1, hemoglobin and hematocrit 12.7 and 40.3, platelet count 356,000. Urinalysis shows the urine to be cloudy with a specific gravity of 1.030 with 40 ketones. There is no blood or nitrites. IMAGING STUDIES: CT of the abdomen and pelvis shows a 0.4 cm obstructing stone at the right ureterovesical junction. Ultrasound of the pelvis shows normal changes. ASSESSMENT: 1. Status post vaginal delivery approximately 2 weeks ago. 2. Obstructing stone at the right ureterovesical junction. 3. Possible endometritis. PLAN: At the current time, the patient is being covered with Zosyn and gentamicin and there are plans by Urology to place a ureteral stent. The time frame for endometritis is late at this point, but the coverage of Zosyn and gentamicin should have her covered appropriately should this be a possibility. Blood cultures and urine cultures are pending. Job ID: [id number]
[2019-02-02] MEDS ORDERED: PROPOFOL 200 MG/20 ML VIAL ONE (15:02)
[2019-02-02] MEDS ORDERED: Dexamethasone 20 MG/5 ML VIAL ONE (15:02)
[2019-02-02] MEDS ORDERED: Lidocaine 1% PF 5 ML VIAL ONE (15:02)
[2019-02-02] MEDS ORDERED: PHENYLEPHRINE-NS 100 MCG/ML 10 ML SYRINGE ONE (15:02)
[2019-02-02] MEDS ORDERED: ePHEDrine 50 MG/ML VIAL ONE (15:02)
[2019-02-02] MEDS ORDERED: Succinylcholine Chloride 20 MG/ML 10 ml SYRINGE FS ONE (15:02)
[2019-02-02] MEDS ORDERED: Ondansetron PF 4 MG/2 ML Vial IVP PRN (15:04)
[2019-02-02] MEDS ORDERED: Clindamycin 6 MG/ML (PEDI) IVPB SCH (15:04)
--- NOTE | 2019-02-02 15:31 | RAD ---
Retrograde IVP INDICATION: History of abdominal pain and right ureteral stent placement Images: There are 3 submitted fluoroscopic spot images. Fluoroscopic time: 31 seconds. Total exposure 1.34 mendoza per centimeter square. FINDINGS: The submitted images demonstrate contrast within the distal right ureter with partial visua lization of a cystoscopy probe. Subsequent image demonstrates placement of a right ureteral stent with the proximal stent projecting in the region of the right renal pelvis and the distal stent proje cting in the region of the bladder. The previous seen noted 4 mm right distal ureteral calculus on a CT of the abdomen and pelvis dated 02/02/2019 is not definitely demonstrated in may have been interv ally removed. IMPRESSION: Placement of a right ureteral stent as above.
[2019-02-02] MEDS ORDERED: Piperacillin/Tazobactam 3.375 GM in Sodium Chloride 0.9% 100 ML IVPB SCH (16:00)
[2019-02-02 17:12] VITALS: BMI 37.5
[2019-02-02] MEDS: Clindamycin/D5W 900 MG in Premix Bag 1 BAG IVPB SCH ×2 (17:37→23:29)
[2019-02-02] MEDS: Lactated Ringer's 1,000 ML IV SCH ×2 (17:39→23:29)
[2019-02-02] MEDS ORDERED: Gentamicin 20 MG/2 ML PF (Neonates) IVPB SCH (18:00)
[2019-02-02] MEDS ORDERED: Phenazopyridine HCl 97.5 MG TABLET PO PRN (19:14)
[2019-02-02] MEDS: Piperacillin/Tazobactam 3.375 GM in Sodium Chloride 0.9% 100 ML IVPB SCH (19:45)
--- NOTE | 2019-02-02 21:14 | OP ---
DATE OF PROCEDURE: 02/02/2019 PREOPERATIVE DIAGNOSES: 1. 23-year-old female, 12 days , presents with acute onset of right lower quadrant abdominal discomfort. Temperature 102.9. 2. CT demonstrating right 4 mm UVJ stone, right upper to mid pole nonobstructing renal lithiasis per my review, 2 mm. POSTOPERATIVE DIAGNOSES: 1. 23-year-old female, 12 days , presents with acute onset of right lower quadrant abdominal discomfort. Temperature 102.9. 2. CT demonstrating right 4 mm UVJ stone, right upper to mid pole nonobstructing renal lithiasis per my review, 2 mm. PROCEDURES: Cystoscopy, right retrograde, 6 x 26 double-J ureteral stent. ANESTHESIA: General. COMPLICATIONS: None apparent despite to recovery room in stable condition. INDICATIONS FOR PROCEDURE: Ms. Morejon is a 23-year-old female, , presented with acute onset of right lower quadrant abdominal pain, intractable with fever of 102.9. Her urine is grossly unremarkable. However, due to history of fever, advised regarding stent placement. Culture has been sent and she has been provided broad-spectrum antibiotics. Risks and complications of the procedure were reviewed, including, but not limited to, bleeding, pain, infection, injury to adjacent organs, urosepsis. Questions answered. She desired to proceed. DESCRIPTION OF PROCEDURE: After an informed consent was signed, the patient was taken to the operating room, placed in the dorsal lithotomy position with the genital area prepped and draped in the usual surgical sterile fashion. A 22- Polish cystoscope was utilized. We did provide bilateral SIERRA hose SCDs. Upon entering the bladder, there was clear urine. The UO was identified in normal orthotopic position. I did not see any stone nidus in the bladder. A 5-Polish open-ended catheter was utilized to intubate the UO, there was some resistance at the level of the intramural ureter. Therefore, we gently injected a little bit of contrast opacifying a dilated distal ureter. A 0.35 Sensor wire was able to be passed to the right upper pole. A 6 x 26 double-J ureteral stent was passed. At passage of ureteral stent, there was a small stone that exited the ureteral orifice about 2 -3 mm, punctate in nature. We tried to retrieve it. However, it was difficult to grab and it did crush upon trying to grab the specimen. A 16-Polish Menjivar catheter was placed to gravity for strict I's and O's. The patient awakened, taken to PACU in stable condition. After convalescence when urine culture negative, plan ureteroscopy. Job ID: [id number] [facility]
[2019-02-02] MEDS: Morphine 4 MG/ML VIAL SLOW IVP PRN (21:20)
[2019-02-03] MEDS: Piperacillin/Tazobactam 3.375 GM in Sodium Chloride 0.9% 100 ML IVPB SCH ×4 (00:46→19:48)
--- NOTE | 2019-02-03 06:57 | PDOC.FM ---
- Subjective Subjective: POD 1 cysto with placement of right ureteral stent. No pain, fever or chills. Urinating w/o issues. Dec vaginal discharge. - Objective MAR Reviewed: Yes Vital Signs & Weight: Vital Signs (12 hours) Temp Pulse Resp BP Pulse Ox 02/03/19 04:07 99.2 F 89 20 92/58 L 97 02/03/19 00:46 99.3 F 93 20 104/71 96 02/02/19 21:00 98.9 F 99 17 105/71 95 02/02/19 20:00 99.1 F 95 18 101/74 95 02/02/19 19:58 96 02/02/19 19:17 99.2 F 98 20 103/67 96 Weight Weight 96.162 kg I&O: 02/01/19 02/02/19 02/03/19 06:59 06:59 06:59 Intake Total 2960 Output Total 2350 Balance 610 Result Diagrams: 02/03/19 07:59 02/03/19 07:59 Phys Exam - Physical Examination Constitutional: NAD HEENT: PERRLA, moist MMs Neck: no JVD, full ROM Respiratory: no wheezing, clear to auscultation bilateral Cardiovascular: RRR, no significant murmur Gastrointestinal: soft, non-tender, positive bowel sounds Musculoskeletal: no edema, pulses present mild TTP of right flank w/ deep palpation Neurological: non-focal, moves all 4 limbs Psychiatric: normal affect, A&O x 3 Dx/Plan (1) Sepsis Code(s): A41.9 - SEPSIS, UNSPECIFIED ORGANISM Status: Acute (2) Hydronephrosis with renal and ureteral calculous obstruction Code(s): N13.2 - HYDRONEPHROSIS WITH RENAL AND URETERAL CALCULOUS OBSTRUCTION Status: Acute (3) Gardnerella associated vaginal discharge Code(s): N76.0 - ACUTE VAGINITIS; B96.89 - OTH BACTERIAL AGENTS THE CAUSE OF DISEASES CLASSD ELSWHR Status: Acute - Plan Plan: Ms Tsai is a 23yo female 13 days admitted for sepsis 2/2 right renal hydronephrosis with obstructing nephrolithiasis Sepsis likely 2/2 obstructing nephrolithiasis vs. endometritis -CT showing right renal hydronephrosis and 2mm and 4mm stones at [facility] -S/p double J right ureteral stent on 02/02 -Adeqate urine output, no stone passage visualization -zosyn and gentamicin to cover until urine cx finalize -Azo, oxybutynin, urochole and morphine for pain control Bacterial vaginitis -IV clindamycin since inc. resistance to flagyl Hypokalemia -3.4, will give PO x1 -recheck in AM Right renal hydronephrosis with obstructing nephrolithaisis -see plan above -pt with no history of stones MATTHEW -improved, dec in baseline gfr, almost to baseline -continueoral rehydration -recheck in AM Factor 5 Leiden deficiency -MD aware, will monitor Code Status: FULL DVT ppx: lovenox diet: PCP: Dr Gonzalez 1.) Sepsis 2/2 obstructing nephrolithaisis-POD 1 ureteral stent placement. Sepsis has resolved. Continue obs and zosyn until urine cx finalizes. Uro on board, appreciate recs. 2) Possible endometritis-OBGYN on board- continue zosyn + gentamicin for coverage. 3) Gardnerella vaginitis-Clindamycin to tx. 4)Hypokalemia-replace PO. Addendum - Attending - Attending Attestation Date/Time: 02/03/19 5677 I personally evaluated the patient and discussed the management with Dr. Lyman. I agree with the History, Examination, Assessment and Plan documented above with any addition or exceptions noted below. The patient is feeling a little better. The patient will remain on antibiotics. Awaiting cultures. Replacing potassium for hypokalemia.
--- NOTE | 2019-02-03 07:50 | PRG ---
DATE OF SERVICE: 02/03/2019 SUBJECTIVE: The patient is feeling better. Flank pain is significantly improved. Denies nausea, vomiting, chills. OBJECTIVE: VITAL SIGNS: Stable. She is afebrile. yellow urine per nursing staff. ABDOMEN: Soft, nontender, nondistended. No CVA tenderness. Resolution of right lower quadrant abdominal discomfort. LABORATORY DATA: No new labs this morning. Urine culture is pending. IMPRESSION AND PLAN: 1. Darleen is a 23-year-old female who presented with acute onset of right lower quadrant abdominal discomfort with fever of 102.9. 2. Fifteen days . 3. CT demonstrating right ureterovesical junction stone, nonobstructing right renal calculi. Postop day #1 cysto right retrograde ureteral stent. patient recovering well. Pain is resolved. No evidence of recurrent fever. Recommend observation until urine culture final. Informed the patient that next week ureteroscopy, laser lithotripsy, stone extraction will be scheduled pending followup urine culture if negative. Kristel per primary service, I am okay with this. She is on clindamycin and gentamicin per Gynecology. She is being covered for possible endometritis. Await final urine culture. Job ID: [id number] [facility]
[2019-02-03 08:32] LABS: #Monocytes 0.5 thou/uL (0.11-0.59); #Neutrophils 3.2 thou/uL (1.40-6.50); %Basophils 0.3 % (0.0-1.0); %Eosinophils 0.1 % (0.0-10.0); %Lymphocytes 35.3 % (21.0-51.0); %Monocytes 9.3 % (0.0-10.0); %Neutrophils 55.1 % (42.0-75.0); Hemoglobin 12.1 g/dL (12.0-16.0); Mean Corpuscular HGB CONC 32.5 g/dL (32.0-36.0); Mean Corpuscular Volume 89.4 fL (78.0-98.0); Mean Platelet Volume 6.7 fL (7.4-10.4); Platelet Count 321 thou/uL (130-400); RBC Distribution Width 13.6 % (11.5-14.5); Red Blood Cell (RBC) Count 4.15 mill/uL (4.20-5.40); White Blood Cell (WBC) Count 5.7 thou/uL (4.8-10.8)
[2019-02-03 08:49] LABS: Anion Gap 11 mmol/L (10-20); BUN (Urea Nitrogen) 7 mg/dL (7.0-18.7); Calc. Creatinine Clearance 163 mL/min (70-130); Calcium 8.7 mg/dL (7.8-10.44); Carbon Dioxide 27 mmol/L (22-29); Chloride 106 mmol/L (98-107); Estimated GFR-MDRD 87; Glucose 84 mg/dL (70-105); Potassium 3.4 mmol/L (3.5-5.1); Sodium 141 mmol/L (136-145)
[2019-02-03] MEDS: Enoxaparin Sodium 40 MG/0.4 ML SYRINGE SC SCH (09:47)
[2019-02-03] MEDS: Clindamycin/D5W 900 MG in Premix Bag 1 BAG IVPB SCH ×3 (09:47→23:35)
[2019-02-03] MEDS: Lactated Ringer's 1,000 ML IV SCH ×2 (09:50→19:00)
[2019-02-03] MEDS ORDERED: Gentamicin 20 MG/2 ML PF (Neonates) IVPB SCH (10:00)
[2019-02-03] MEDS ORDERED: Potassium Chloride 20 MEQ TAB PO SCH (10:15)
[2019-02-03] MEDS: Oxybutynin ER 5 MG TAB PO SCH (11:24)
[2019-02-03] MEDS: SODIUM CHLORIDE 0.9% IVPB SCH ×2 (11:24→16:50)
[2019-02-03] MEDS: GENTAMICIN SULFATE IVPB SCH ×2 (11:24→16:50)
[2019-02-03] MEDS: Acetaminophen 325 MG TAB PO PRN ×3 (11:26→19:49)
[2019-02-03 14:39] LABS: INR-International Normal Ratio 1.1; Prothrombin Time 13.8 SEC (12.0-14.7)
[2019-02-03 14:40] LABS: PTT 35.2 SEC (22.9-36.1)
[2019-02-04] MEDS: GENTAMICIN SULFATE IVPB SCH ×2 (00:01→08:37)
[2019-02-04] MEDS: SODIUM CHLORIDE 0.9% IVPB SCH ×2 (00:01→08:37)
[2019-02-04] MEDS: Acetaminophen 325 MG TAB PO PRN ×4 (00:25→20:41)
[2019-02-04] MEDS: Piperacillin/Tazobactam 3.375 GM in Sodium Chloride 0.9% 100 ML IVPB SCH ×4 (00:31→18:21)
[2019-02-04] MEDS ORDERED: Sodium Chloride 0.65% Nasal 44 ML BOT EA NARE PRN (00:37)
[2019-02-04] MEDS ORDERED: Loratadine 10 MG TAB PO PRN (00:37)
[2019-02-04] MEDS: Ondansetron ODT 4 MG TAB PO PRN (01:15)
[2019-02-04] MEDS: Lactated Ringer's 1,000 ML IV SCH ×3 (01:16→18:22)
--- NOTE | 2019-02-04 05:57 | PDOC.FM ---
- Subjective Subjective: NAEO. Had fever. Pt deneis fevers, chlils, still having right flan pain that feels the same .Some nausea. Dec vaginal discharge - Objective Vital Signs & Weight: Vital Signs (12 hours) Temp Pulse Resp BP Pulse Ox 02/04/19 05:43 101.4 F H 85 16 98/65 96 02/04/19 00:59 99.3 F 98 16 97/67 97 02/03/19 20:00 99.4 F 106 H 18 103/67 96 Weight Weight 96.162 kg I&O: 02/02/19 02/03/19 02/04/19 06:59 06:59 06:59 Intake Total 2960 1450 Output Total 2350 Balance 610 1450 Result Diagrams: 02/04/19 07:01 02/04/19 07:01 Phys Exam - Physical Examination Constitutional: NAD HEENT: PERRLA, moist MMs Neck: no nodes, full ROM Respiratory: no wheezing, clear to auscultation bilateral Cardiovascular: RRR, no significant murmur Gastrointestinal: soft, non-tender Musculoskeletal: no edema, edema present right flank tenderness to palpation Neurological: moves all 4 limbs Psychiatric: normal affect, A&O x 3 Dx/Plan (1) Sepsis Code(s): A41.9 - SEPSIS, UNSPECIFIED ORGANISM Status: Acute (2) Hydronephrosis with renal and ureteral calculous obstruction Code(s): N13.2 - HYDRONEPHROSIS WITH RENAL AND URETERAL CALCULOUS OBSTRUCTION Status: Acute (3) Gardnerella associated vaginal discharge Code(s): N76.0 - ACUTE VAGINITIS; B96.89 - OTH BACTERIAL AGENTS THE CAUSE OF DISEASES CLASSD ELSWHR Status: Acute - Plan Plan: Ms Tsai is a 23yo female 13 days admitted for sepsis 2/2 right renal hydronephrosis with obstructing nephrolithiasis Sepsis likely 2/2 obstructing nephrolithiasis vs. endometritis -CT showing right renal hydronephrosis and 2mm and 4mm stones at [facility] -S/p double J right ureteral stent on 02/02 -Adeqate urine output, no stone passage visualization -zosyn and gentamicin to cover until urine cx finalize -Azo, oxybutynin, urochole and morphine for pain control -due to fever will reorder blood cx, pt w/o white count -obs for 24 hrs Bacterial vaginitis -transition to PO clinda for 7 day course Hypokalemia, resolved Right renal hydronephrosis with obstructing nephrolithaisis -see plan above -pt with no history of stones MATTHEW -improved, dec in baseline gfr, almost to baseline -continueoral rehydration -recheck in AM Factor 5 Leiden deficiency -MD aware, will monitor dvt ppx: lovenox Dispo: 24 hr obs per uro due to fever. Addendum - Attending - Attending Attestation Date/Time: 02/04/19 9795 I personally evaluated the patient and discussed the management with Dr. Lyman. I agree with the History, Examination, Assessment and Plan documented above with any addition or exceptions noted below. The patient had fever early this morning. Blood culture redrawn. Will continue zosyn. Change to po clindamycin. Appreciate input for bin piler and urology.
[2019-02-04 07:24] LABS: #Lymphocytes 1.6 thou/uL (1.20-3.40); #Monocytes 0.4 thou/uL (0.11-0.59); #Neutrophils 2.8 thou/uL (1.40-6.50); %Basophils 0.9 % (0.0-1.0); %Eosinophils 0.1 % (0.0-10.0); %Lymphocytes 33.2 % (21.0-51.0); %Monocytes 7.6 % (0.0-10.0); %Neutrophils 58.2 % (42.0-75.0); Hemoglobin 11.3 g/dL (12.0-16.0); Mean Corpuscular HGB CONC 32.4 g/dL (32.0-36.0); Mean Corpuscular Hemoglobin 28.2 pg (27.0-31.0); Mean Corpuscular Volume 86.9 fL (78.0-98.0); Mean Platelet Volume 6.8 fL (7.4-10.4); Platelet Count 272 thou/uL (130-400); RBC Distribution Width 13.5 % (11.5-14.5); White Blood Cell (WBC) Count 4.8 thou/uL (4.8-10.8)
--- NOTE | 2019-02-04 07:47 | PRG ---
DATE OF SERVICE: 02/04/2019 SUBJECTIVE: The patient resting, complains of myalgia consistent with history of fever 101.4. Denies significant flank pain. Right lower quadrant abdominal discomfort. OBJECTIVE: VITAL SIGNS: Otherwise are stable. ABDOMEN: Soft. No rigidity. No rebound. No CVA tenderness appreciated. EXTREMITIES: No cyanosis, clubbing, or edema. No calf tenderness appreciated. I's and O's 3750 in, 2850 out. PERTINENT LABS: There are no new labs today. Urine culture negative, preliminary, . Blood culture x2 negative from February 02. IMPRESSION AND PLAN: 1. A 23-year-old female, presented with right lower quadrant abdominal discomfort with fever of 102.9. 2. day 16. 3. Postop day #2 cysto, right retrograde, ureteral stent placement, secondary to right ureterovesical junction stone, nonobstructing right renal calculi. Urine culture is negative. From urologic perspective, the patient only requires one antibiotic regimen. Zosyn is okay if it is broad-spectrum, moreover repeat urine culture is negative. 4. Recurrence of fever. Workup required. Repeat blood culture, CBC advised. . Nevertheless, due to recent fever, the patient not cleared for discharge. will require clearance from OB, medical service to be discharged. If medical and OB clearance, patient is scheduled for ureteroscopy, laser lithotripsy this Friday as an outpatient. Recommend observation for minimum 24 hours due to recent fever. Repeat blood culture advised. Consider discontinuation of clindamycin, gentamicin if okay with OB. Job ID: [id number] [facility]
[2019-02-04 07:49] LABS: Anion Gap 12 mmol/L (10-20); BUN (Urea Nitrogen) 6 mg/dL (7.0-18.7); Calc. Creatinine Clearance 155 mL/min (70-130); Calcium 8.5 mg/dL (7.8-10.44); Carbon Dioxide 25 mmol/L (22-29); Chloride 104 mmol/L (98-107); Estimated GFR-MDRD 82; Glucose 86 mg/dL (70-105); Potassium 3.8 mmol/L (3.5-5.1); Sodium 137 mmol/L (136-145)
[2019-02-04] MEDS: Oxybutynin ER 5 MG TAB PO SCH (08:37)
[2019-02-04] MEDS: Clindamycin/D5W 900 MG in Premix Bag 1 BAG IVPB SCH (08:37)
[2019-02-04] MEDS: Enoxaparin Sodium 40 MG/0.4 ML SYRINGE SC SCH (08:38)
[2019-02-04] MEDS ORDERED: Clindamycin 150 MG CAP PO SCH ×2 (09:00→11:45)
--- NOTE | 2019-02-04 09:34 | PRG ---
DATE OF SERVICE: 02/04/2019 SUBJECTIVE: The patient is hospital day 3, status post ureteral stent placement for identifying ureteral stones. She presented with fever in her . We were consulted with concerns that this may be an endometritis. After initial evaluation by Dr. العراقي, findings were not consistent with an endomyometritis, though given the timing with her delivery, it is possible. She has been here now for 2 days. She spiked another temperature last night of 101.4. This morning, talking to the patient, she denies any pain or tenderness in her uterus or pelvis. She is tolerating a diet. She denies any breast tenderness or firmness or redness. OBJECTIVE: VITAL SIGNS: This morning, temperature 99.5, pulse of 89, respiratory rate of 18, saturating 96% on room air, blood pressure 104/74, and T-max of 101.4 this morning around 5:45. GENERAL: She appears to be in no acute distress. She was pumping or finishing up prompting when I arrived. ABDOMEN: Fundus is firm and nontender to deep palpation. LABORATORY DATA: This morning white count is 4.8, hemoglobin 11.3, hematocrit 34.8, and neutrophil percentage of 58%. White count on arrival was 9.1, hemoglobin 12.7, hematocrit 40.3, and neutrophil percentage 64.2. ASSESSMENT AND PLAN: The patient is hospital day 3 for febrile illness. Reviewing Urology's notes, our understanding is that she does not believe this is urologic source. From our evaluation and experience, she does not appear to be having a gynecologic source for her fever, as it is unlikely to have developed infection this far out from delivery without any symptoms. The patient does not have mastitis , as the patient is denying any tenderness or redness or firmness of her breast. There may be other possible sources including viral illness as she does have a suppression in her white count. This morning, she is complaining of somewhat of a sore throat that may or may not be symptom of underlying illness. We will be deferring a more thorough workup for this fever to the primary team. At this time, we will be monitoring from the background, but should this be an endomyometritis undiagnosed she would need to remain on antibiotics for 2 days, afebrile. I will be reporting off to Dr. العراقي, who will be the oncoming [employer]. Job ID: [id number] [facility]
[2019-02-04] MEDS: Clindamycin 150 MG CAP PO SCH (20:42)
[2019-02-04] MEDS ORDERED: Metamucil PACK PO SCH (22:45)
[2019-02-05] MEDS: Piperacillin/Tazobactam 3.375 GM in Sodium Chloride 0.9% 100 ML IVPB SCH ×3 (01:07→12:47)
[2019-02-05] MEDS: Acetaminophen 325 MG TAB PO PRN ×2 (01:08→14:55)
[2019-02-05] MEDS: Lactated Ringer's 1,000 ML IV SCH ×3 (01:11→16:43)
[2019-02-05] MEDS: Clindamycin 150 MG CAP PO SCH ×3 (05:28→22:36)
[2019-02-05] MEDS ORDERED: Chloraseptic Spray 180 ml Bottle PO PRN (07:34)
--- NOTE | 2019-02-05 07:35 | PDOC.FM ---
- Subjective Subjective: Patient w/ no complaints. Denies fevers, chills, vaginal discharge, dysuria, hematuria. Still with some R flank tendrenss on palpatin,. Also with rhinorrhea , sore throat. - Objective MAR Reviewed: Yes Vital Signs & Weight: Vital Signs (12 hours) Temp Pulse Resp BP BP Pulse Ox 02/05/19 04:00 99.5 F 97 16 94/64 96 02/04/19 23:10 98.9 F 80 02/04/19 20:48 100.2 F H 83 18 100/63 96 Weight Weight 96.162 kg I&O: 02/04/19 02/05/19 02/06/19 06:59 06:59 06:59 Intake Total 3750 4230 Output Total 900 2850 Balance 2850 1380 Result Diagrams: 02/05/19 07:49 02/05/19 07:49 Phys Exam - Physical Examination Constitutional: NAD HEENT: PERRLA, moist MMs Respiratory: no wheezing, clear to auscultation bilateral Cardiovascular: RRR, no significant murmur Gastrointestinal: soft, non-tender, no distention Musculoskeletal: no edema, edema present r flank tenderness to palpation Neurological: non-focal, moves all 4 limbs Psychiatric: normal affect, A&O x 3 Skin: cap refill <2 seconds Dx/Plan (1) Sepsis Code(s): A41.9 - SEPSIS, UNSPECIFIED ORGANISM Status: Acute (2) Hydronephrosis with renal and ureteral calculous obstruction Code(s): N13.2 - HYDRONEPHROSIS WITH RENAL AND URETERAL CALCULOUS OBSTRUCTION Status: Acute (3) Gardnerella associated vaginal discharge Code(s): N76.0 - ACUTE VAGINITIS; B96.89 - OTH BACTERIAL AGENTS THE CAUSE OF DISEASES CLASSD ELSWHR Status: Acute - Plan Plan: Ms Tsai is a 23yo female 13 days admitted for sepsis 2/2 right renal hydronephrosis with obstructing nephrolithiasis Sepsis likely 2/2 obstructing nephrolithiasis vs. endometritis -CT showing right renal hydronephrosis and 2mm and 4mm stones at [facility] -S/p double J right ureteral stent on 02/02 -Adeqate urine output, no stone passage visualization -Azo, oxybutynin, urochole and morphine for pain control -continuing to have low grade fevers, concern for continued infection. will get viral panel since pt with resp. sxs. repeat UA/UCx. Continue zosyn. Blood & urine cx NGTD. No WBC. Will continue to monitor -Uro and OBGYN plan to talk -Will discuss with radiology to r/o septic pelvic thrombophlebitis since pt 14 days PP. Reassess prior imaging. -Keep over weekend to monitor for fever Bacterial vaginitis -contineu PO clinda for 7 day course Hypokalemia, resolved Right renal hydronephrosis with obstructing nephrolithaisis -see plan above -pt with no history of stones MATTHEW , resolved Factor 5 Leiden deficiency -MD aware, will monitor dvt ppx: lovenox Dispo: Continue to watch for fever Addendum - Attending - Attending Attestation Date/Time: 02/05/19 1016 I personally evaluated the patient and discussed the management with Dr. Lyman. I agree with the History, Examination, Assessment and Plan documented above with any addition or exceptions noted below. The patient continues to have low grade fevers. Adding respiratory viral panel with her sore throat and congestion to help with source of fever. Continue antibiotics. Will also discuss case with radiology to look at scans for possible thrombophlebitis.
[2019-02-05 07:59] LABS: #Lymphocytes 2.5 thou/uL (1.20-3.40); #Monocytes 0.3 thou/uL (0.11-0.59); #Neutrophils 2.1 thou/uL (1.40-6.50); %Basophils 0.3 % (0.0-1.0); %Eosinophils 0.3 % (0.0-10.0); %Lymphocytes 49.9 % (21.0-51.0); %Monocytes 6.6 % (0.0-10.0); Hemoglobin 12.6 g/dL (12.0-16.0); Mean Corpuscular HGB CONC 32.7 g/dL (32.0-36.0); Mean Corpuscular Hemoglobin 28.6 pg (27.0-31.0); Mean Corpuscular Volume 87.4 fL (78.0-98.0); Mean Platelet Volume 6.6 fL (7.4-10.4); Platelet Count 263 thou/uL (130-400); RBC Distribution Width 13.4 % (11.5-14.5); White Blood Cell (WBC) Count 4.9 thou/uL (4.8-10.8)
[2019-02-05] MEDS: Saccharomyces boulardii 250 MG CAP PO SCH (08:08)
[2019-02-05] MEDS: Enoxaparin Sodium 40 MG/0.4 ML SYRINGE SC SCH (08:09)
[2019-02-05 08:19] LABS: Anion Gap 12 mmol/L (10-20); BUN (Urea Nitrogen) 6 mg/dL (7.0-18.7); Calc. Creatinine Clearance 161 mL/min (70-130); Calcium 8.6 mg/dL (7.8-10.44); Carbon Dioxide 25 mmol/L (22-29); Chloride 105 mmol/L (98-107); Estimated GFR-MDRD 86; Glucose 81 mg/dL (70-105); Potassium 3.9 mmol/L (3.5-5.1); Sodium 138 mmol/L (136-145)
[2019-02-05] MEDS: Oxybutynin ER 5 MG TAB PO SCH (09:04)
--- NOTE | 2019-02-05 11:15 | PRG ---
DATE OF SERVICE: 02/05/2019 SUBJECTIVE: The patient is feeling okay. PHYSICAL EXAMINATION: VITAL SIGNS: She had a low-grade temperature yesterday at 10 p.m. 100.2. Currently, temperature 99.5, heart rate 97, respiratory rate 16, saturation 96, blood pressure 94/64. I's and O's, urine output 2850. ABDOMEN: Soft, nontender, nondistended. No significant CVA or lower quadrant tenderness is appreciated. LABORATORY DATA: No new labs; however, her labs from yesterday demonstrates no leukocytosis, left shift of concern. Urine culture, final, negative. Blood culture x2 negative. IMPRESSION AND PLAN: Ms. Tsia is a 23-year-old female with history of fever. Initial presentation of fever 102. 1. day number 17. 2. Postoperative day number 3, cysto right retrograde ureteral stent secondary to right ureterovesical junction stone, nonobstructing right renal calculi. 3. Recurrence of low-grade fever. The patient clinically improving. Although, the patient complains of some sore throat. She attributes this to anesthesia intubation. Informed the patient regarding options of ureteroscopy, laser lithotripsy Friday as she has negative urine culture. If she continues to have high fevers, she will need to be observed over the weekend. If significant high fever of concern, will need to defer surgery. As we would like to proceed with ureteroscopy, laser lithotripsy, and stent replacement on Friday, I informed the patient that if she is medically cleared to be discharged, it would be performed as an outpatient. If she still in- house, with resolution of fever, not of concern, can also proceed as an inpatient as well pending medical assessment. If discharged over the weekend, recommend Levaquin 500 mg one p.o. daily to extend for pulmonary coverage. Admitting chest x-ray demonstrates no acute pathology, reassuring. will coordinate care with primary service. Dr. Carlton Lo and marli covering me for prn issues Job ID: [id number] [facility]
[2019-02-05 11:41] LABS: Bilirubin Negative (Negative); Blood, Urine Large (Negative); Clarity CLOUDY (Clear); Glucose, Urine (Dipstick) Negative (Negative); Leukocyte Small (Negative); Nitrite Negative (Negative); Protein, Urine (Dipstick) 30 mg/dL (Neg-Trace); Specific Gravity, Urine 1.009 (1.002-1.036); Urobilinogen 0.2 mg/dL (0.2-1.0); pH, Urine 6.5 (5.0-9.0)
[2019-02-05 11:45] LABS: Bacteria/HPF None Seen HPF (None Seen); Hyaline Casts/LPF 4-6 HYALINE CAST LPF (0-3 Hyaline); Pathc Cast-AUWi Flag 1.36 (0-2.49); RBC/HPF GREATER THAN 50-TNTC HPF (0-3); Squamous Epithelial 0-3 HPF (0-3)
[2019-02-05 11:53] LABS: Transitional Epithelial 0-3 HPF (0-3)
--- NOTE | 2019-02-05 12:50 | PDOC.EVN ---
Event Note - Event Note Event Note: Pt wants to leave AMA. Advised she sholdn't still having low grade fevers, would like to keep to monitor and further infectious workup. Disucssed she may get very sick if she goes home.Pt understands. Sent antibiotics to continue taking and discussed following up with urology on Friday.
[2019-02-05] MEDS ORDERED: ISOVUE-370 76%-LOCM 1 ML ONE (16:45)
--- NOTE | 2019-02-05 17:14 | CT ---
Contrast-enhanced CT images abdomen and pelvis. HISTORY: Abdominal pain. Comparison made to previous exam from 02/02/2019. There is a right ureteral stent in place. Previously hydronephrotic right kidney is decompressed. The lung bases are unremarkable. The liver, spleen, gallbladder and pancreas are unremarkable. Adrenal glands unremarkable. The right and left kidneys demonstrate no evidence of abnormal parenchymal enhancement. Right gonadal vein demonstrates a filling defect and circumferential enhancement compatible with thro mbophlebitis. A normal appendix is visualized. No dilated loops of small bowel or colon seen. uterus is visualized. Impression right ovarian vein thrombophlebitis.
[2019-02-05] MEDS ORDERED: Piperacillin/Tazobactam 4.5 GM in Sodium Chloride 0.9% 100 ML IVPB SCH ×3 (17:37→20:00)
--- NOTE | 2019-02-05 18:49 | PDOC.EVN ---
Event Note - Event Note Event Note: OBGYN [employer] case d/w Dr العراقي this AM Labs and notes reviewed by me up to date. No new input at this time.
[2019-02-05] MEDS: Enoxaparin Sodium 100 MG/ML SYRINGE SC SCH (21:24)
[2019-02-05] MEDS: Oseltamivir 75 MG CAP PO SCH (21:28)
[2019-02-05] MEDS: Ondansetron ODT 4 MG TAB PO PRN (21:39)
[2019-02-06] MEDS: Acetaminophen 325 MG TAB PO PRN ×3 (03:49→21:05)
[2019-02-06] MEDS: Piperacillin/Tazobactam 4.5 GM in Sodium Chloride 0.9% 100 ML IVPB SCH ×3 (03:50→21:06)
[2019-02-06] MEDS: Clindamycin 150 MG CAP PO SCH ×3 (06:35→22:09)
--- NOTE | 2019-02-06 06:41 | PDOC.FM ---
- Subjective Subjective: Had dark urine with flank pain that has now since improved/resolved. No fevers, chills, vaginal discharge. No pelvic pain. - Objective MAR Reviewed: Yes Vital Signs & Weight: Vital Signs (12 hours) Temp Pulse Resp BP BP BP Pulse Ox 02/06/19 04:00 99.3 F 91 20 99/62 96 02/06/19 00:00 99.5 F 90 16 92/62 96 02/05/19 20:00 98.3 F 87 16 95/60 98 Weight Weight 96.162 kg I&O: 02/04/19 02/05/19 02/06/19 06:59 06:59 06:59 Intake Total 3750 4230 1270 Output Total 900 2850 1000 Balance 2850 1380 270 Result Diagrams: 02/06/19 07:01 02/06/19 07:01 Phys Exam - Physical Examination Constitutional: NAD HEENT: PERRLA, moist MMs Neck: no nodes, full ROM Respiratory: no wheezing, clear to auscultation bilateral Cardiovascular: RRR, no significant murmur Gastrointestinal: soft, non-tender Musculoskeletal: no edema no flank tenderness Psychiatric: normal affect, A&O x 3 Skin: no rash, cap refill <2 seconds Dx/Plan (1) pelvic thrombophlebitis Code(s): O87.1 - DEEP PHLEBOTHROMBOSIS IN THE PUERPERIUM Status: Acute (2) Sepsis Code(s): A41.9 - SEPSIS, UNSPECIFIED ORGANISM Status: Resolved (3) Hydronephrosis with renal and ureteral calculous obstruction Code(s): N13.2 - HYDRONEPHROSIS WITH RENAL AND URETERAL CALCULOUS OBSTRUCTION Status: Acute (4) Gardnerella associated vaginal discharge Code(s): N76.0 - ACUTE VAGINITIS; B96.89 - OTH BACTERIAL AGENTS THE CAUSE OF DISEASES CLASSD ELSWHR Status: Acute (5) Factor V Leiden carrier Code(s): D68.51 - ACTIVATED PROTEIN C RESISTANCE Status: Acute - Plan Plan: Right ovarian thrombophlebitis -Per CT imgaging shows R ovarian thrombophlebitis -Pt started in th. lovenox, may need usp anticoagluation, will touch base with OBGYN -Zosyn to cover until fever free >48 hours Right renal hydronephrosis with obstructing nephrolithaisis -CT showing right renal hydronephrosis and 2mm and 4mm stones at [facility] -S/p double J right ureteral stent on 02/02 -Azo, oxybutynin, urochole and morphine for pain control -UA with LE, WBCs, on zosyn which will also cover -Uro on board -Plan for stent removal and lithotripsy Friday Influenza B -Tamiflu Bacterial vaginitis -continue PO clinda for 7 day course Hypokalemia, resolved MATTHEW , resolved Factor 5 Leiden deficiency -MD aware, will monitor dvt ppx: lovenox Dispo: Continue treatment, observation over weekend. Lithotripsy and stent removal friday if has not passed stones. Addendum - Attending - Attending Attestation Date/Time: 02/06/19 5292 I personally evaluated the patient and discussed the management with Dr. Lyman. I agree with the History, Examination, Assessment and Plan documented above with any addition or exceptions noted below. The patient had very dark urine this morning. She notes some back pain overnight which is better this morning. Will speak with ob regarding possible septic thrombophlebitis and get their opinion on continuing anticoagulation. Pt remains on zosyn. Treating the flu with tamiflu.
[2019-02-06 08:08] LABS: Hemoglobin 12.3 g/dL (12.0-16.0); Mean Corpuscular HGB CONC 33.3 g/dL (32.0-36.0); Mean Corpuscular Hemoglobin 29.2 pg (27.0-31.0); Mean Corpuscular Volume 87.5 fL (78.0-98.0); Mean Platelet Volume 7.1 fL (7.4-10.4); Platelet Count 237 thou/uL (130-400); RBC Distribution Width 13.4 % (11.5-14.5); Red Blood Cell (RBC) Count 4.22 mill/uL (4.20-5.40); White Blood Cell (WBC) Count 4.7 thou/uL (4.8-10.8)
[2019-02-06 08:10] LABS: Anion Gap 16 mmol/L (10-20); BUN (Urea Nitrogen) 7 mg/dL (7.0-18.7); Calc. Creatinine Clearance 161 mL/min (70-130); Calcium 8.6 mg/dL (7.8-10.44); Carbon Dioxide 23 mmol/L (22-29); Chloride 104 mmol/L (98-107); Estimated GFR-MDRD 86; Glucose 73 mg/dL (70-105); Potassium 3.7 mmol/L (3.5-5.1); Sodium 139 mmol/L (136-145)
[2019-02-06] MEDS: Oxybutynin ER 5 MG TAB PO SCH (09:37)
[2019-02-06] MEDS: Saccharomyces boulardii 250 MG CAP PO SCH (09:37)
[2019-02-06] MEDS: Oseltamivir 75 MG CAP PO SCH ×2 (09:38→21:37)
[2019-02-06 10:12] LABS: Band 5 % (5-11); Large Platelets SLIGHT; Lymphocytes 49 % (21-51); MDiff Complete? YES; Monocytes 11 % (0-10); Neutrophil 30 % (42-75); Platelet Morphology Comment Appears Adequate; RBC Morphology Normal; Reactive Lymphocytes 4 % (0-10)
--- NOTE | 2019-02-06 10:13 | PDOC.EVN ---
Event Note - Event Note Event Note: Discussed case with Dr. Pitt who believes this could be a more incidental finding and since pt has been clincially improving, responding to abx concern for septic pelvic thrombophlebitis is low. He recommended discontinuing anticoagulation, clinically monitoring and if she starts to develop fever, worsening of pain or overall clinical deterioration then to proceed with treatment for SPT.
[2019-02-06] MEDS: Enoxaparin Sodium 100 MG/ML SYRINGE SC SCH (11:44)
[2019-02-06 12:27] LABS: Prothrombin Time 12.9 SEC (12.0-14.7)
[2019-02-06 12:28] LABS: PTT 35.1 SEC (22.9-36.1)
[2019-02-06 12:30] LABS: D-Dimer Test 1.91 *mcg/mL (0.27-0.43)
[2019-02-07] MEDS: Piperacillin/Tazobactam 4.5 GM in Sodium Chloride 0.9% 100 ML IVPB SCH ×3 (04:18→21:02)
[2019-02-07] MEDS: Clindamycin 150 MG CAP PO SCH ×3 (05:23→22:26)
--- NOTE | 2019-02-07 06:50 | PDOC.FM ---
- Subjective Subjective: NAEO. No compalints. No hematuria. Still some R flank soreness, much improved - Objective MAR Reviewed: Yes Vital Signs & Weight: Vital Signs (12 hours) Temp Pulse Resp BP BP BP Pulse Ox 02/07/19 04:16 98.4 F 71 18 95/66 96 02/07/19 00:00 98.5 F 69 16 92/62 97 02/06/19 22:20 66 90/62 95 02/06/19 20:00 95 02/06/19 19:45 98.0 F 84 18 94/64 98 Weight Weight 96.162 kg I&O: 02/05/19 02/06/19 02/07/19 06:59 06:59 06:59 Intake Total 4230 1270 1880 Output Total 2850 1000 400 Balance 6991 926 0186 Result Diagrams: 02/07/19 08:02 02/07/19 08:02 Phys Exam - Physical Examination Constitutional: NAD HEENT: PERRLA, moist MMs Respiratory: no wheezing, clear to auscultation bilateral Cardiovascular: RRR, no significant murmur Gastrointestinal: soft, non-tender no R flank tenderness Neurological: non-focal, moves all 4 limbs Dx/Plan (1) pelvic thrombophlebitis Code(s): O87.1 - DEEP PHLEBOTHROMBOSIS IN THE PUERPERIUM Status: Acute (2) Sepsis Code(s): A41.9 - SEPSIS, UNSPECIFIED ORGANISM Status: Resolved (3) Hydronephrosis with renal and ureteral calculous obstruction Code(s): N13.2 - HYDRONEPHROSIS WITH RENAL AND URETERAL CALCULOUS OBSTRUCTION Status: Acute (4) Gardnerella associated vaginal discharge Code(s): N76.0 - ACUTE VAGINITIS; B96.89 - OTH BACTERIAL AGENTS THE CAUSE OF DISEASES CLASSD ELSWHR Status: Acute (5) Factor V Leiden carrier Code(s): D68.51 - ACTIVATED PROTEIN C RESISTANCE Status: Acute - Plan Plan: Right renal hydronephrosis with obstructing nephrolithaisis -CT showing right renal hydronephrosis and 2mm and 4mm stones at [facility] -Double J right ureteral stent placed on 02/02 -Azo, oxybutynin, urochole and morphine for pain control -UA with LE, WBCs, on zosyn which will also cover -Patient may have passed stones, not clear since urine not strained -Plan for stent removal and lithotripsy Friday with Urology -Renal function within normal limits -NPO at midnight -Continue zosyn for microbial coverage Right ovarian thrombophlebitis -CT A/P shows R ovarian thrombophlebitis -OBGYN recommends that this may be incidental finding. Patient without WBC or persistent fever on antibiotics so less likely septic pelvic thrombophlebitis. Recommends no current or senior living anticoagulation. No risk of ovarian infarction. Influenza B -Tamiflu for 5 day course - Droplet precautions Bacterial vaginitis -continue PO clinda for 7 day course completion Hypokalemia, resolved MATTHEW , resolved Factor 5 Leiden deficiency -MD aware, will monitor dvt ppx: lovenox Dispo: Uro planning for lithotripsy and stent removal this Friday (02/08) Addendum - Attending - Attending Attestation Date/Time: 02/07/19 8341 I personally evaluated the patient and discussed the management with Dr. Lyman. I agree with the History, Examination, Assessment and Plan documented above with any addition or exceptions noted below. Pt is doing well. Still with mild flank pain. She is afebrile. continue tamifly and zosyn. Plan for lithotripsy tomorrow.
--- NOTE | 2019-02-07 07:07 | PDOC.EVN ---
Event Note - Event Note Event Note: [employer] Hospitalist Progress note. Subjective: Patient denies pain. States she is feeling well. Had questions about ovarian vein thrombosis. Explained it was likely an incidental finding and will likely spontaneously resolve. Objective: Vitals WNL. Afebrile for >24 hours GEN: NAD, resting comfortably Abd: NTND, no CVA tenderness Labs: Reviewed, UA consistent with stone vs pyelonephritis Micro: UCx negative, Influenza B positive A&P: Septic Nephrolithiasis: Urology plans to reevaluate Friday and consider lithotripsy. Only recommendation in the clinical setting of culture negative pyuria would be to consider screening for GC/CT. Low probability given fever has resolved on current management. Ovarian vein thrombosis: Given that she has 2 other likely sources for her fever , recommend no further treatment unless she fevers after her nephrolithiasis has been addressed. At that time would recommend antibiotics and anticoagulation until symptoms resolve. Care discussed with Dr. Pitt.
[2019-02-07] MEDS: Saccharomyces boulardii 250 MG CAP PO SCH (08:18)
[2019-02-07] MEDS: Oxybutynin ER 5 MG TAB PO SCH (08:18)
[2019-02-07] MEDS: Oseltamivir 75 MG CAP PO SCH ×2 (08:18→21:02)
[2019-02-07 08:41] LABS: #Eosinphils 0.1 thou/uL (0.0-0.7); #Lymphocytes 2.1 thou/uL (1.20-3.40); #Monocytes 0.4 thou/uL (0.11-0.59); #Neutrophils 1.6 thou/uL (1.40-6.50); %Basophils 0.2 % (0.0-1.0); %Eosinophils 2.7 % (0.0-10.0); %Lymphocytes 49.3 % (21.0-51.0); %Monocytes 8.4 % (0.0-10.0); %Neutrophils 39.4 % (42.0-75.0); Hemoglobin 12.9 g/dL (12.0-16.0); Mean Corpuscular HGB CONC 34.3 g/dL (32.0-36.0); Mean Corpuscular Hemoglobin 29.8 pg (27.0-31.0); Mean Corpuscular Volume 86.6 fL (78.0-98.0); Mean Platelet Volume 7.2 fL (7.4-10.4); Platelet Count 234 thou/uL (130-400); RBC Distribution Width 13.3 % (11.5-14.5); Red Blood Cell (RBC) Count 4.34 mill/uL (4.20-5.40); White Blood Cell (WBC) Count 4.2 thou/uL (4.8-10.8)
[2019-02-07 09:00] LABS: Anion Gap 12 mmol/L (10-20); BUN (Urea Nitrogen) 9 mg/dL (7.0-18.7); Calc. Creatinine Clearance 185 mL/min (70-130); Calcium 8.6 mg/dL (7.8-10.44); Carbon Dioxide 24 mmol/L (22-29); Chloride 107 mmol/L (98-107); Estimated GFR-MDRD Greater than 90; Glucose 91 mg/dL (70-105); Potassium 4.1 mmol/L (3.5-5.1); Sodium 139 mmol/L (136-145)
[2019-02-07] MEDS ORDERED: Enoxaparin Sodium 40 MG/0.4 ML SYRINGE SC SCH (09:00)
[2019-02-07 16:26] LABS: Chlam.trachomatis by PCR,Urine Not Detected (NotDetected)
[2019-02-07] MEDS: Acetaminophen 325 MG TAB PO PRN (21:02)
[2019-02-08] MEDS: Piperacillin/Tazobactam 4.5 GM in Sodium Chloride 0.9% 100 ML IVPB SCH ×2 (04:24→11:56)
[2019-02-08] MEDS: Clindamycin 150 MG CAP PO SCH ×2 (05:34→14:23)
--- NOTE | 2019-02-08 06:54 | PDOC.FM ---
- Subjective Subjective: No events overnight. Pt states that her pain is a zero this morning. She denies SOB, dyspnea, nausea, or vomiting. - Objective MAR Reviewed: Yes Vital Signs & Weight: Vital Signs (12 hours) Temp Pulse Resp BP Pulse Ox 02/08/19 04:03 97.9 F 63 16 97/66 97 02/08/19 00:00 97.9 F 72 18 97 02/07/19 20:03 98.6 F 84 18 107/76 98 02/07/19 20:00 98 Weight Weight 96.162 kg I&O: 02/06/19 02/07/19 02/08/19 06:59 06:59 06:59 Intake Total 1270 1880 1999 Output Total 1000 400 Balance 270 1480 1999 Result Diagrams: 02/08/19 07:18 02/07/19 08:02 Phys Exam - Physical Examination Constitutional: NAD HEENT: moist MMs Neck: full ROM Respiratory: no wheezing, clear to auscultation bilateral Cardiovascular: RRR, no significant murmur, no rub Gastrointestinal: soft, non-tender, no distention, positive bowel sounds Musculoskeletal: pulses present Neurological: moves all 4 limbs Psychiatric: A&O x 3 Skin: cap refill <2 seconds Dx/Plan (1) Gardnerella associated vaginal discharge Code(s): N76.0 - ACUTE VAGINITIS; B96.89 - OTH BACTERIAL AGENTS THE CAUSE OF DISEASES CLASSD ELSWHR Status: Acute (2) Hydronephrosis with renal and ureteral calculous obstruction Code(s): N13.2 - HYDRONEPHROSIS WITH RENAL AND URETERAL CALCULOUS OBSTRUCTION Status: Acute (3) pelvic thrombophlebitis Code(s): O87.1 - DEEP PHLEBOTHROMBOSIS IN THE PUERPERIUM Status: Acute (4) Sepsis Code(s): A41.9 - SEPSIS, UNSPECIFIED ORGANISM Status: Resolved (5) Factor V Leiden carrier Code(s): D68.51 - ACTIVATED PROTEIN C RESISTANCE Status: Acute - Plan Plan: This is a 23 yo 17 days PP Right renal hydronephrosis with obstructing nephrolithiasis -Stent placed on 02/02, plan for stent removal and lithotripsy today -Pt is low risk for complications from non-cardiac surgery, discussed with Dr. Armando, Dr. Lesia Lyman, and Dr. Griffin. -Zosyn for microbial coverage -Normal renal function Right ovarian thrombophlebitis -[employer] recommends that this may be incidental. No persistent fever, less likely SPT, no need for anticoagulation at this time Influenza B -Tamiflu (02/05) -Droplet precautions Bacterial vaginitis -PO clinda (02/02) -Stop tomorrow Hypokalemia, resolved MATTHEW, resolved Factor 5 Leiden deficiency Addendum - Attending - Attending Attestation Date/Time: 02/08/19 5865 I personally evaluated the patient and discussed the management with Dr. Hyde. I agree with the History, Examination, Assessment and Plan documented above with any addition or exceptions noted below. Patient doing well. I am seeing her s/p lithotripsy. Reports some grogginess and discomfort but otherwise doing well. 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
[2019-02-08 08:05] LABS: Hemoglobin 12.7 g/dL (12.0-16.0); Mean Corpuscular HGB CONC 32.4 g/dL (32.0-36.0); Mean Corpuscular Hemoglobin 28.5 pg (27.0-31.0); Mean Corpuscular Volume 87.9 fL (78.0-98.0); Mean Platelet Volume 7.2 fL (7.4-10.4); Platelet Count 260 thou/uL (130-400); RBC Distribution Width 13.2 % (11.5-14.5); Red Blood Cell (RBC) Count 4.47 mill/uL (4.20-5.40)
[2019-02-08 08:49] LABS: Band 6 % (5-11); Eosinophils 3 % (0-10); Lymphocytes 53 % (21-51); MDiff Complete? YES; Monocytes 3 % (0-10); Neutrophil 33 % (42-75); RBC Morphology Normal; Reactive Lymphocytes 2 % (0-10)
[2019-02-08] MEDS ORDERED: Fentanyl 100 MCG/2 ML VIAL ONE (09:08)
[2019-02-08] MEDS ORDERED: Promethazine HCl 25 MG/ML VIAL SLOW IVP PRN (09:59)
[2019-02-08] MEDS ORDERED: Meperidine HCl/PF 25 MG/ML VIAL SLOW IVP PRN (09:59)
[2019-02-08] MEDS ORDERED: Morphine Sulfate 2 MG/ML SYRINGE SLOW IVP PRN (09:59)
[2019-02-08] MEDS ORDERED: Promethazine HCl 25 MG/ML VIAL IM PRN (09:59)
--- NOTE | 2019-02-08 11:06 | RAD ---
RETROGRADE PYELOGRAM: HISTORY: Followup stent placement. FINDINGS: There is contrast injected through a right ureteral stent filling a nondilated right upper collecting system. IMPRESSION: Limited single-view study demonstrating nondilated right upper collecting system and right ureteral s tent and wire in place. POS: [facility]
[2019-02-08 11:26] VITALS: BP 110/68; TEMP 97.5
[2019-02-08] MEDS: Oseltamivir 75 MG CAP PO SCH (11:49)
[2019-02-08] MEDS: Saccharomyces boulardii 250 MG CAP PO SCH (11:49)
[2019-02-08] MEDS: Oxybutynin ER 5 MG TAB PO SCH (11:49)
[2019-02-08] MEDS: Morphine 4 MG/ML VIAL SLOW IVP PRN (11:50)
--- NOTE | 2019-02-08 12:35 | OP ---
DATE OF PROCEDURE: 02/08/2019 PREOPERATIVE DIAGNOSES: A 23-year-old female with history of right ureterovesical junction stone, 4 mm; history of right upper to mid pole nonobstructing 2 to [address] POSTOPERATIVE DIAGNOSES: A 23-year-old female with history of right ureterovesical junction stone, 4 mm; history of right upper to mid pole nonobstructing 2 to [address] PROCEDURE PERFORMED: Cystoscopy, right retrograde pyelogram, 6 x 26 double-J ureteral stent exchange on dangler, ureteroscopy, pyeloscopy, laser lithotripsy of ureteral and renal calculi, basket extraction. ANESTHESIA: General. COMPLICATIONS: None apparent. DISPOSITION: To recovery room in stable condition. SPECIMEN: None. INDICATIONS FOR PROCEDURE AND HISTORY: Darleen is a 23-year-old female, who presented with acute onset of right lower quadrant abdominal discomfort, found to have an obstructing UVJ stone, status post stent. Her urine culture is negative , underwent ureteral stent with improvement of her discomfort. She was kept in- house that she was found to have positive influenza B. Urine culture and blood culture negative. She has been defervesced with no evidence of fever for the last 36 to 72 hours. She presents today for ureteroscopy and laser lithotripsy. She was also diagnosed with thrombophlebitis of her ovarian vein followed by Gynecology. No need for anticoagulation per Obstetrics and Gynecology. She is cleared to be discharged home this afternoon. She is also medically cleared to proceed with surgery today. She desired to proceed with ureteroscopy, laser lithotripsy. Risks and complications of the procedure were reviewed with patient and family in detail. All questions were answered to her satisfaction, desired to proceed. DESCRIPTION OF PROCEDURE: After an informed consent was signed, the patient was taken to the operating room, placed in a dorsal lithotomy position with the genital area prepped and draped in the usual surgical sterile fashion. Broad-spectrum antibiotics were provided. Bilateral SIERRA hose and SCDs were placed. A 21- Romanian cystoscope was utilized for cystoscopy. We visualized the previous stent and removed to the level of the meatus. A 0.35 Sensor wire was passed through the stent to the right upper pole. At this time, a rigid ureteroscope was passed without significant issues. There was some bullous edema in the intramural ureter consistent with a previous stone, and I did see a stone nidus in the intramural ureter. Using 200 micron laser fiber, we had laser lithotripsied the stone into multiple tiny pieces. The stone was very soft in nature. Most of the stone debris effluxed out the right UO into the bladder. The ureteroscope was advanced to the mid to proximal ureter with no evidence of further stone nidus of concern. At this time, a second safety wire 0.35 Super Stiff wire was placed in the right upper pole. A flexible ureteral scope was able to be advanced without significant issues to the right upper pole. We visualized the stone in the right upper pole, it appeared to be bigger than 2 to 3 mm about 3-4 mm in size that was adherent to the papilla. We lasered this and rendered free into multiple tiny punctate stone debris, not warranting treatment or basket extraction. Surveillance of the collecting system demonstrated no stone burden for the nidus. The ureter was surveyed demonstrating no evidence of perforation or ureteral calculi debris of concern. A 6 x 26 double-J ureteral stent was passed without difficulty. Robbyer left in situ as there was endoscopic clearance. This was taped to the patient's pubic symphysis. Bladder was completely emptied and she tolerated the procedure well and transported to the recovery room in stable condition. She was discharged back to her medical floor. I did speak with the Family Medicine Service. It appears the patient is stable for discharge sometime this afternoon. Has appointment with me next Friday for a stent pull on dangler. She will be discharged with Omn[facility]f until followup appointment 300 mg one p.o. b.i.d. Job ID: [id number] MTDD
[2019-02-09 14:50] LABS: Factor VIII Test 192.1 % ACTIVE (56-157)
[2019-02-09 15:12] LABS: Protein C Activity 82 % (78-152)
[2019-02-10 14:56] LABS: HEX PHOS LA Tube 1 50.2 SEC
[2019-02-10 14:57] LABS: Hexagonal Phospholipid Neut 1.2 SEC (0-8.0)
[2019-02-10 16:34] LABS: Cardiolipin IgA Ab 2.3 APL-U/mL (<14 Negative); Cardiolipin IgG Ab 1.4 GPL-U/mL (<10 Negative); Cardiolipin IgM Ab 1.4 MPL-U/mL (<10 Negative); EliA APS New Method **** NEW METHOD ****
[2019-02-13 00:16] LABS: Chlam.trachomatis by PCR,Urine Inconclusive (NotDetected)
== END 2019-02-08 17:22 | disposition home or self-care (01) | DRG 769 ==
LOC: ERS 05:21 → ERHOLD 10:29 → SURG A 13:59 → T4-B 16:06
PROVIDERS: ADMIT Family Medicine; ATTEND Family Medicine
PROC: 0T768DZ Dilation of Right Ureter with Intraluminal Device, Via Natural or Artificial Opening Endoscopic (ICD-10-PCS; principal; 2019-02-02)
PROC: 0TC08ZZ Extirpation of Matter from Right Kidney, Via Natural or Artificial Opening Endoscopic (ICD-10-PCS; 2019-02-08)
PROC: 0T768DZ Dilation of Right Ureter with Intraluminal Device, Via Natural or Artificial Opening Endoscopic (ICD-10-PCS; 2019-02-08)
DX: O85 Puerperal sepsis (principal); O90.4 Postpartum acute kidney failure; O87.1 Deep phlebothrombosis in the puerperium; N13.2 Hydronephrosis with renal and ureteral calculous obstruction; O99.13 Other diseases of the blood and blood-forming organs and certain disorders involving the immune mechanism complicating the puerperium; D68.51 Activated protein C resistance; O99.89 Other specified diseases and conditions complicating pregnancy, childbirth and the puerperium; J11.1 Influenza due to unidentified influenza virus with other respiratory manifestations; B96.89 Other specified bacterial agents as the cause of diseases classified elsewhere; E87.6 Hypokalemia
CPT/HCPCS: 36415; 51702; 71045; 74177; 74420; 76000; 76856; 80048; 80053; 81001; 81003; 81240; 81241; 83090; 83605; 83935; 84300; 85025; 85240; 85300; 85303; 85305; 85307; 85379; 85598; 85610; 85730; 86147; 87040; 87086; 87324; 87449; 87480; 87491; 87510; 87591; 87633; 87660; 93976; 96361; 96365; 96375; 96376; C1758; C1769; J0131; J1100; J1580; J1650; J2001; J2270; J2405; J2543; J2704; J3010; J3490; J7050; Q0162; Q9966

== ENCOUNTER 2019-08-11 13:50 | Outpatient (CLI) | payer OTHER ==
--- NOTE | 2019-08-11 14:25 | ULT ---
Exam: Bilateral renal ultrasound HISTORY: Renal calculi; frequent micturition COMPARISON: None FINDINGS: Right kidney: Normal cortical echotexture. No hydronephrosis. Right kidney measurements: 11.9 x 5.3 x 5.3 cm. Left kidney: Normal cortical echotexture. No hydronephrosis Left kidney measurements 11.2 x 4.9 x 4.3 cm. Urinary bladder: Limited evaluation of the urinary bladder due to recent voiding. Bilateral ureteral jets are noted IMPRESSION: No hydronephrosis.
--- NOTE | 2019-08-11 15:49 | RAD ---
Exam: 1 view abdomen HISTORY: Frequent menstruation. Renal calculi. FINDINGS: No osseous abnormalities. Nonspecific bowel gas pattern. No suspicious densities in the abd omen or pelvis. No pneumoperitoneum on this supine projection. No radiographic evidence of nephrolithiasis. IMPRESSION: Unremarkable AP abdomen and pelvic radiograph
== END 2019-08-11 13:51 | disposition home or self-care (01) ==
LOC: BICULT 13:50
PROVIDERS: ATTEND Urology
DX: N20.0 Calculus of kidney (principal); R35.0 Frequency of micturition
CPT/HCPCS: 36415; 74018; 76770; 80048; 81001; 83970; 84550